=== PATIENT | female | born 1990 | race African-American/Black ===

== ENCOUNTER 2016-05-28 00:15 | Emergency (ER) | payer MEDICAID ==
[~2016-05-28] VITALS: Ht 180.3 cm; Wt 107.4 kg
[~2016-05-28 00:15] MED LIST: AMOXICILLIN500 MG PO; CIPRO500 MG PO; CLARITIN10 M1 PO; FLEXERIL OR; KEFLEX500 M1 PO; LOMOTIL2.5 MG PO; LORTAB 7.57.5 MG PO; MOTRIN800 MG PO; NAPROSYN500 MG PO; NAPROXEN375 MG OR; NO; NO HOME MEDS; NORCO1 TA1 PO; PRENATAL VITAMINS PO; ROBITUSSIN200 MG/10 PO; TESSALON PER100 MG PO; TORADOL OR; ULTRAM50 M1 PO; ZOFRAN ODT8 MG PO; ZOFRAN ODT8 MG SL
[2016-05-28 01:54] LABS: HEMATOCRIT 36.6 % (37.0-47.0); HEMOGLOBIN 11.5 g/dl (12.0-16.0); IMMATURE GRANULOCYTES 0.1 % (0.0-1.0); MEAN CELL VOLUME 84.3 fL CALC (80.0-100.0); MEAN CORPUSCULAR HGB 26.5 pG CALC (26.0-32.0); MEAN CORPUSCULAR HGB CONC 31.4 g/L CALC (32.0-36.0); NEUT# 2.51 thou/uL (2.00-7.15); RED BLOOD COUNT 4.34 mill/uL (4.20-5.60); RED CELL DISTRI WIDTH 13.3 % (11.5-15.5)
[2016-05-28 02:04] LABS: ALBUMIN 3.9 g/dL (3.2-5.0); ALKALINE PHOSPHATASE 105 u/l (38-126); ANION GAP 14 (6-22 (CALC)); BILIRUBIN, TOTAL 0.2 mg/dL (0.0-1.4); BUN 9 mg/dL (7-17); BUN/CREATININE RATIO 12 (12-20 (CALC)); CALCIUM 9.7 mg/dL (8.4-10.2); CARBON DIOXIDE 27 mmol/l (22-30); CHLORIDE 103 mmol/l (95-108); CREATININE 0.8 mg/dL (0.5-1.0); GFR > 60 ML/MIN (>=60 (CALC)); GFR FOR AFR.AMER. > 60 ML/MIN (>=60 (CALC)); GLUCOSE 80 mg/dL (65-105); POTASSIUM 4.3 mmol/l (3.5-5.1); SGOT/AST 19 u/l (14-36); SGPT/ALT 29 u/l (9-52); SODIUM 140 mmol/l (137-146); TOTAL PROTEIN 7.6 g/dL (6.3-8.2)
[2016-05-28 02:05] LABS: INFLUENZA A NONE DETECTED (NONE DETECT); INFLUENZA B NONE DETECTED (NONE DETECT)
[2016-05-28] MEDS ORDERED: AMOXICILLIN500 MG PO (02:05)
[2016-05-28 02:15] VITALS: BP 114/72
== END 2016-05-28 02:15 | disposition home or self-care (01) | DRG 153 ==
LOC: ED 00:15
PROVIDERS: Emergency Medicine
DX: J02.0 Streptococcal pharyngitis (principal); R52 Pain, unspecified; R05 Cough

== ENCOUNTER 2016-07-17 17:13 | Emergency (ER) | payer MEDICAID ==
[~2016-07-17] VITALS: Ht 180.3 cm; Wt 100.0 kg
[2016-07-17 18:07] VITALS: BP 119/80
== END 2016-07-17 18:13 | disposition home or self-care (01) | DRG 103 ==
LOC: ED 17:13
DX: G43.909 Migraine, unspecified, not intractable, without status migrainosus (principal)

== ENCOUNTER 2016-08-04 17:19 | Emergency (ER) | payer MEDICAID ==
[~2016-08-04] VITALS: Ht 180.3 cm; Wt 115.0 kg
[2016-08-04 18:18] LABS: URINE BILIRUBIN - DIPSTICK NEGATIVE (NEGATIVE); URINE BLOOD DIPSTICK LARGE (NEGATIVE); URINE CLARITY SLIGHT CLOUDY; URINE COLOR YELLOW; URINE GLUCOSE - DIPSTICK NEGATIVE (NEGATIVE); URINE KETONE NEGATIVE (NEGATIVE); URINE LEUK ESTERASE TRACE (NEGATIVE); URINE NITRITE - DIPSTICK NEGATIVE (Negative); URINE PROTEIN - DIPSTICK TRACE mg/dL (NEG-TRACE); URINE SPECIFIC GRAVITY >=1.030
[2016-08-04 18:27] LABS: URINE SQUAMOUS EPITHELIAL CELL MODERATE EPI/hpf (0-FEW)
[2016-08-04 18:28] LABS: ALBUMIN 3.7 g/dL (3.2-5.0); ALKALINE PHOSPHATASE 109 u/l (38-126); ANION GAP 14 (6-22 (CALC)); BILIRUBIN, TOTAL 0.3 mg/dL (0.0-1.4); BUN 7 mg/dL (7-17); BUN/CREATININE RATIO 12 (12-20 (CALC)); CALCIUM 8.9 mg/dL (8.4-10.2); CARBON DIOXIDE 23 mmol/l (22-30); CHLORIDE 107 mmol/l (95-108); CREATININE 0.6 mg/dL (0.5-1.0); GFR > 60 ML/MIN (>=60 (CALC)); GFR FOR AFR.AMER. > 60 ML/MIN (>=60 (CALC)); GLUCOSE 86 mg/dL (65-105); POTASSIUM 3.7 mmol/l (3.5-5.1); SGOT/AST 25 u/l (14-36); SGPT/ALT 29 u/l (9-52); SODIUM 140 mmol/l (137-146); TOTAL PROTEIN 6.8 g/dL (6.3-8.2)
[2016-08-04 18:29] LABS: HEMATOCRIT 33.4 % (37.0-47.0); HEMOGLOBIN 11.1 g/dl (12.0-16.0); IMMATURE GRANULOCYTES 0.2 % (0.0-1.0); MEAN CELL VOLUME 81.5 fL CALC (80.0-100.0); MEAN CORPUSCULAR HGB 27.1 pG CALC (26.0-32.0); MEAN CORPUSCULAR HGB CONC 33.2 g/L CALC (32.0-36.0); NEUT# 2.61 thou/uL (2.00-7.15); RED BLOOD COUNT 4.1 mill/uL (4.20-5.60); RED CELL DISTRI WIDTH 14.3 % (11.5-15.5)
[2016-08-04] MEDS ORDERED: CIPROFLOXACN500 MG PO (19:42)
[2016-08-04] MEDS ORDERED: ULTRAM50 M1 PO (19:42)
[2016-08-04 19:54] VITALS: BP 114/79
== END 2016-08-04 19:54 | disposition home or self-care (01) | DRG 392 ==
LOC: ED 17:19
PROVIDERS: Emergency Medicine
DX: R10.31 Right lower quadrant pain (principal); N39.0 Urinary tract infection, site not specified; N83.201 Unspecified ovarian cyst, right side
CPT/HCPCS: Q9967

== ENCOUNTER 2016-10-27 00:05 | Emergency (ER) | payer MEDICAID ==
[~2016-10-27] VITALS: Ht 180.3 cm; Wt 104.2 kg
[~2016-10-27 00:05] MED LIST changes: +CIPROFLOXACN500 MG PO
[2016-10-27 00:51] LABS: INFLUENZA A NONE DETECTED (NONE DETECT); INFLUENZA B NONE DETECTED (NONE DETECT)
[2016-10-27] MEDS ORDERED: AMOXICILLIN500 MG PO (00:57)
[2016-10-27] MEDS ORDERED: ROBITUSSIN AC10 ML PO (00:57)
[2016-10-27 01:02] VITALS: BP 124/74
[2016-10-27] MEDS ORDERED: MONISTAT1 VA (01:07)
== END 2016-10-27 01:02 | disposition home or self-care (01) | DRG 153 ==
LOC: ED 00:05
PROVIDERS: Emergency Medicine
DX: J02.9 Acute pharyngitis, unspecified (principal)

== ENCOUNTER 2017-01-07 16:25 | Emergency (ER) | payer MEDICAID ==
[~2017-01-07] VITALS: Ht 180.3 cm; Wt 109.6 kg
[~2017-01-07 16:25] MED LIST changes: +MONISTAT1 VA; +ROBITUSSIN AC10 ML PO
[2017-01-07] MEDS ORDERED: IMITREX50 MG PO ×2 (17:53→18:01)
[2017-01-07 18:04] VITALS: BP 133/86
== END 2017-01-07 18:04 | disposition home or self-care (01) | DRG 103 ==
LOC: ED 16:25
DX: G43.909 Migraine, unspecified, not intractable, without status migrainosus (principal); H53.143 Visual discomfort, bilateral; H53.8 Other visual disturbances; R11.0 Nausea

== ENCOUNTER 2017-07-21 15:46 | Emergency (ER) | payer SELFPAY ==
[~2017-07-21] VITALS: Ht 180.3 cm; Wt 90.9 kg
[~2017-07-21 15:46] MED LIST changes: +IMITREX50 MG PO
[2017-07-21 16:00] VITALS: BP 158/86
[2017-07-21 16:39] LABS: HEMATOCRIT 36.5 % (37.0-47.0); HEMOGLOBIN 11.6 g/dl (12.0-16.0); IMMATURE GRANULOCYTES 0.2 % (0.0-1.0); MEAN CELL VOLUME 83.1 fL CALC (80.0-100.0); MEAN CORPUSCULAR HGB 26.4 pG CALC (26.0-32.0); MEAN CORPUSCULAR HGB CONC 31.8 g/L CALC (32.0-36.0); NEUT# 3.3 thou/uL (2.00-7.15); RED BLOOD COUNT 4.39 mill/uL (4.20-5.60)
[2017-07-21 16:54] LABS: ALBUMIN 4.1 g/dL (3.2-5.0); ALKALINE PHOSPHATASE 92 u/l (38-126); ANION GAP 14 (6-22 (CALC)); BILIRUBIN, TOTAL 0.4 mg/dL (0.0-1.4); BUN 10 mg/dL (7-17); BUN/CREATININE RATIO 16 (12-20 (CALC)); CARBON DIOXIDE 22 mmol/l (22-30); CHLORIDE 108 mmol/l (95-108); CREATININE 0.7 mg/dL (0.5-1.0); GFR > 60 ML/MIN (>=60 (CALC)); GFR FOR AFR.AMER. > 60 ML/MIN (>=60 (CALC)); LIPASE 64 u/l (23-300); POTASSIUM 3.9 mmol/l (3.5-5.1); SGOT/AST 21 u/l (14-36); SGPT/ALT 35 u/l (9-52); SODIUM 140 mmol/l (137-146)
[2017-07-21] MEDS ORDERED: ULTRAM50 M1 PO (19:48)
== END 2017-07-21 20:23 | disposition home or self-care (01) | DRG 392 ==
LOC: ED 15:46
PROVIDERS: Emergency Medicine
DX: R10.84 Generalized abdominal pain (principal); N83.209 Unspecified ovarian cyst, unspecified side
CPT/HCPCS: Q9967

== ENCOUNTER 2017-09-03 23:33 | Emergency (ER) | payer OTHER ==
[~2017-09-03] VITALS: Ht 180.3 cm; Wt 112.8 kg
[2017-09-04 00:19] LABS: INFLUENZA A NONE DETECTED (NONE DETECT)
[2017-09-04 00:20] LABS: INFLUENZA B NONE DETECTED (NONE DETECT)
[2017-09-04] MEDS ORDERED: AMOXICILLIN500 MG PO (00:26)
[2017-09-04 00:35] VITALS: BP 129/84
== END 2017-09-04 00:35 | disposition home or self-care (01) ==
LOC: ED 23:33
PROVIDERS: Emergency Medicine
DX: J02.0 Streptococcal pharyngitis (principal)

== ENCOUNTER 2017-09-13 22:38 | Emergency (ER) | payer OTHER ==
[~2017-09-13] VITALS: Ht 180.3 cm; Wt 11436.0 kg
[2017-09-13] MEDS ORDERED: AMOX/K CLAV875 M1 PO (23:31)
[2017-09-14 00:01] VITALS: BP 131/79
== END 2017-09-14 00:10 | disposition home or self-care (01) ==
LOC: ED 22:38
DX: J02.0 Streptococcal pharyngitis (principal)

== ENCOUNTER 2017-09-20 11:49 | Emergency (ER) | payer OTHER ==
[~2017-09-20] VITALS: Ht 180.3 cm; Wt 115.0 kg
[~2017-09-20 11:49] MED LIST changes: +AMOX/K CLAV875 M1 PO
[2017-09-20 12:43] LABS: HEMATOCRIT 34.3 % (37.0-47.0); HEMOGLOBIN 11.1 g/dl (12.0-16.0); IMMATURE GRANULOCYTES 0.3 % (0.0-5.0); MEAN CELL VOLUME 82.9 fL CALC (80.0-100.0); MEAN CORPUSCULAR HGB 26.8 pG CALC (26.0-32.0); MEAN CORPUSCULAR HGB CONC 32.4 g/L CALC (32.0-36.0); NEUT# 4.26 thou/uL (2.00-7.15); RED BLOOD COUNT 4.14 mill/uL (4.20-5.60); RED CELL DISTRI WIDTH 13.7 % (11.5-15.5)
[2017-09-20 12:49] LABS: ALBUMIN 3.9 g/dL (3.2-5.0); ALKALINE PHOSPHATASE 97 u/l (38-126); ANION GAP 13 (6-22 (CALC)); BILIRUBIN, TOTAL 0.3 mg/dL (0.0-1.4); BUN 9 mg/dL (7-17); BUN/CREATININE RATIO 16 (12-20 (CALC)); CARBON DIOXIDE 26 mmol/l (22-30); CHLORIDE 107 mmol/l (95-108); CREATININE 0.6 mg/dL (0.5-1.0); GFR > 60 ML/MIN (>=60 (CALC)); GFR FOR AFR.AMER. > 60 ML/MIN (>=60 (CALC)); LIPASE 71 u/l (23-300); POTASSIUM 4.1 mmol/l (3.5-5.1); SGOT/AST 25 u/l (14-36); SGPT/ALT 27 u/l (9-52); SODIUM 142 mmol/l (137-146); TOTAL PROTEIN 7.5 g/dL (6.3-8.2)
[2017-09-20 14:11] VITALS: BP 128/75
[2017-09-20] MEDS ORDERED: MOTRIN200 MG PO (15:19)
== END 2017-09-20 14:20 | disposition home or self-care (01) ==
LOC: ED 11:49
PROVIDERS: Family Medicine
DX: N83.202 Unspecified ovarian cyst, left side (principal); N83.201 Unspecified ovarian cyst, right side; R10.11 Right upper quadrant pain; R10.31 Right lower quadrant pain; R11.0 Nausea
CPT/HCPCS: Q9967

== ENCOUNTER 2017-10-01 23:17 | Emergency (ER) | payer OTHER ==
[~2017-10-01] VITALS: Ht 180.3 cm; Wt 115.0 kg
[~2017-10-01 23:17] MED LIST changes: +MOTRIN200 MG PO
[2017-10-02 00:45] LABS: HEMATOCRIT 34.3 % (37.0-47.0); HEMOGLOBIN 11.2 g/dl (12.0-16.0); IMMATURE GRANULOCYTES 0.2 % (0.0-5.0); MEAN CELL VOLUME 83.1 fL CALC (80.0-100.0); MEAN CORPUSCULAR HGB 27.1 pG CALC (26.0-32.0); MEAN CORPUSCULAR HGB CONC 32.7 g/L CALC (32.0-36.0); NEUT# 2.81 thou/uL (2.00-7.15); RED BLOOD COUNT 4.13 mill/uL (4.20-5.60); RED CELL DISTRI WIDTH 13.6 % (11.5-15.5)
[2017-10-02 01:00] LABS: ALBUMIN 3.8 g/dL (3.2-5.0); ALKALINE PHOSPHATASE 118 u/l (38-126); ANION GAP 13 (6-22 (CALC)); BILIRUBIN, TOTAL 0.2 mg/dL (0.0-1.4); BUN 12 mg/dL (7-17); BUN/CREATININE RATIO 18 (12-20 (CALC)); CARBON DIOXIDE 23 mmol/l (22-30); CHLORIDE 108 mmol/l (95-108); CREATININE 0.7 mg/dL (0.5-1.0); GFR > 60 ML/MIN (>=60 (CALC)); GFR FOR AFR.AMER. > 60 ML/MIN (>=60 (CALC)); POTASSIUM 3.9 mmol/l (3.5-5.1); SGOT/AST 26 u/l (14-36); SGPT/ALT 32 u/l (9-52); SODIUM 141 mmol/l (137-146); TOTAL PROTEIN 7.2 g/dL (6.3-8.2)
[2017-10-02 01:12] LABS: MYOGLOBIN 49 ng/mL (0 - 62)
[2017-10-02 01:42] LABS: URINE BILIRUBIN - DIPSTICK NEGATIVE (NEGATIVE); URINE BLOOD DIPSTICK NEGATIVE (NEGATIVE); URINE COLOR YELLOW; URINE GLUCOSE - DIPSTICK NEGATIVE (NEGATIVE); URINE KETONE TRACE mg/dL (NEGATIVE); URINE NITRITE - DIPSTICK NEGATIVE (Negative); URINE PROTEIN - DIPSTICK NEGATIVE (NEG-TRACE); URINE SPECIFIC GRAVITY >=1.030
[2017-10-02 01:44] LABS: URINE CLARITY SL CLOUDY; URINE LEUK ESTERASE SMALL (NEGATIVE)
[2017-10-02 01:48] LABS: URINE WBC 20-50 WBC/hpf (0-5)
[2017-10-02 01:49] LABS: URINE BACTERIA FEW hpf; URINE SQUAMOUS EPITHELIAL CELL FEW EPI/hpf (0-FEW); URINE TRICHOMONAS FEW hpf
[2017-10-02] MEDS ORDERED: CIPROFLOXACN500 MG PO (02:44)
[2017-10-02 02:55] VITALS: BP 120/70
== END 2017-10-02 03:05 | disposition home or self-care (01) ==
LOC: ED 23:17
PROVIDERS: Emergency Medicine
DX: R60.0 Localized edema (principal); N39.0 Urinary tract infection, site not specified; M79.89 Other specified soft tissue disorders; R94.31 Abnormal electrocardiogram [ECG] [EKG]

== ENCOUNTER 2018-01-21 20:18 | Emergency (ER) | payer OTHER ==
[~2018-01-21] VITALS: Ht 180.3 cm; Wt 127.2 kg
[~2018-01-21 20:18] MED LIST changes: +MAXZIDE-25MG1 COMBO PO; +TRAMADOL HCL50 MG PO
[2018-01-21 21:01] LABS: HEMATOCRIT 34.7 % (37.0-47.0); HEMOGLOBIN 11.2 g/dl (12.0-16.0); IMMATURE GRANULOCYTES 0.3 % (0.0-5.0); MEAN CELL VOLUME 82.8 fL CALC (80.0-100.0); MEAN CORPUSCULAR HGB 26.7 pG CALC (26.0-32.0); MEAN CORPUSCULAR HGB CONC 32.3 g/L CALC (32.0-36.0); NEUT# 5.81 thou/uL (2.00-7.15); RED BLOOD COUNT 4.19 mill/uL (4.20-5.60); RED CELL DISTRI WIDTH 13.8 % (11.5-15.5)
[2018-01-21 21:15] LABS: ALBUMIN 3.7 g/dL (3.2-5.0); ALKALINE PHOSPHATASE 94 u/l (38-126); AMYLASE 91 u/l (30-110); ANION GAP 12 (6-22 (CALC)); BILIRUBIN, TOTAL 0.4 mg/dL (0.0-1.4); BUN 8 mg/dL (7-17); BUN/CREATININE RATIO 15 (12-20 (CALC)); CARBON DIOXIDE 23 mmol/l (22-30); CHLORIDE 107 mmol/l (95-108); CREATININE 0.5 mg/dL (0.5-1.0); GFR > 60 ML/MIN (>=60 (CALC)); GFR FOR AFR.AMER. > 60 ML/MIN (>=60 (CALC)); LIPASE 56 u/l (23-300); POTASSIUM 4.5 mmol/l (3.5-5.1); SGOT/AST 27 u/l (14-36); SODIUM 138 mmol/l (137-146); TOTAL PROTEIN 7.2 g/dL (6.3-8.2)
[2018-01-21] MEDS ORDERED: TRAMADOL HYDROC50 MG PO (23:58)
[2018-01-22 02:30] VITALS: BP 111/51
== END 2018-01-22 02:30 | disposition home or self-care (01) ==
LOC: ED 20:18
PROVIDERS: Emergency Medicine
DX: R10.2 Pelvic and perineal pain (principal); R10.31 Right lower quadrant pain; R11.10 Vomiting, unspecified; Z87.42 Personal history of other diseases of the female genital tract
CPT/HCPCS: Q9967

== ENCOUNTER 2018-05-14 03:19 | Emergency (ER) | payer OTHER ==
[~2018-05-14] VITALS: Ht 180.3 cm; Wt 110.0 kg
[~2018-05-14 03:19] MED LIST changes: +TRAMADOL HYDROC50 MG PO
[2018-05-14 03:56] VITALS: BP 121/61
[2018-05-14] MEDS ORDERED: IBUPROFEN600 MG PO (04:08)
== END 2018-05-14 04:07 | disposition home or self-care (01) ==
LOC: ED 03:19
DX: N93.9 Abnormal uterine and vaginal bleeding, unspecified (principal)

== ENCOUNTER 2018-05-20 00:49 | Emergency (ER) | payer OTHER ==
[~2018-05-20] VITALS: Ht 180.3 cm; Wt 109.4 kg
[~2018-05-20 00:49] MED LIST changes: +IBUPROFEN600 MG PO
[2018-05-20] MEDS ORDERED: TESSALON PER100 MG PO (01:39)
[2018-05-20 02:13] VITALS: BP 132/88
== END 2018-05-20 02:13 | disposition home or self-care (01) ==
LOC: ED 00:49
DX: B34.9 Viral infection, unspecified (principal); J02.9 Acute pharyngitis, unspecified; R09.81 Nasal congestion; R05 Cough; J34.89 Other specified disorders of nose and nasal sinuses

== ENCOUNTER 2018-05-22 03:51 | Emergency (ER) | payer OTHER ==
[~2018-05-22] VITALS: Ht 180.3 cm; Wt 118.0 kg
[2018-05-22 04:23] LABS: HEMATOCRIT 32.9 % (37.0-47.0); HEMOGLOBIN 10.3 g/dl (12.0-16.0); IMMATURE GRANULOCYTES 0.3 % (0.0-5.0); MEAN CELL VOLUME 83.1 fL CALC (80.0-100.0); MEAN CORPUSCULAR HGB CONC 31.3 g/L CALC (32.0-36.0); NEUT# 3.66 thou/uL (2.00-7.15); RED BLOOD COUNT 3.96 mill/uL (4.20-5.60); RED CELL DISTRI WIDTH 14.1 % (11.5-15.5)
[2018-05-22 05:06] VITALS: BP 132/78
== END 2018-05-22 05:21 | disposition home or self-care (01) ==
LOC: ED 03:51
PROVIDERS: Family Medicine
DX: B34.9 Viral infection, unspecified (principal); J02.9 Acute pharyngitis, unspecified; R05 Cough; R09.89 Other specified symptoms and signs involving the circulatory and respiratory systems

== ENCOUNTER 2018-11-19 01:52 | Emergency (ER) | payer OTHER ==
[~2018-11-19] VITALS: Ht 180.3 cm; Wt 100.0 kg
[2018-11-19 02:52] LABS: HEMATOCRIT 33.3 % (37.0-47.0); HEMOGLOBIN 10.5 g/dl (12.0-16.0); IMMATURE GRANULOCYTES 0.1 % (0.0-5.0); MEAN CELL VOLUME 83.9 fL CALC (80.0-100.0); MEAN CORPUSCULAR HGB 26.4 pG CALC (26.0-32.0); MEAN CORPUSCULAR HGB CONC 31.5 g/L CALC (32.0-36.0); NEUT# 3.11 thou/uL (2.00-7.15); RED BLOOD COUNT 3.97 mill/uL (4.20-5.60)
[2018-11-19 03:03] LABS: ALBUMIN 3.9 g/dL (3.2-5.0); ALKALINE PHOSPHATASE 96 u/l (38-126); ANION GAP 9 (6-22 (CALC)); BUN 10 mg/dL (7-17); BUN/CREATININE RATIO 11 (12-20 (CALC)); CARBON DIOXIDE 27 mmol/l (22-30); CHLORIDE 107 mmol/l (95-108); CREATININE 0.9 mg/dL (0.5-1.0); GFR > 60 ML/MIN (>=60 (CALC)); GFR FOR AFR.AMER. > 60 ML/MIN (>=60 (CALC)); POTASSIUM 3.8 mmol/l (3.5-5.1); SGOT/AST 20 u/l (14-36); SODIUM 140 mmol/l (137-146); TOTAL PROTEIN 7.5 g/dL (6.3-8.2)
[2018-11-19 03:04] LABS: BILIRUBIN, TOTAL 0.2 mg/dL (0.0-1.4)
[2018-11-19 03:15] LABS: MYOGLOBIN 24 ng/mL (0 - 62)
[2018-11-19 03:52] LABS: URINE BILIRUBIN - DIPSTICK NEGATIVE (NEGATIVE); URINE BLOOD DIPSTICK MODERATE (NEGATIVE); URINE COLOR YELLOW; URINE GLUCOSE - DIPSTICK 100 mg/dL (NEGATIVE); URINE KETONE NEGATIVE (NEGATIVE); URINE LEUK ESTERASE NEGATIVE (NEGATIVE); URINE NITRITE - DIPSTICK NEGATIVE (Negative); URINE PROTEIN - DIPSTICK NEGATIVE (NEG-TRACE); URINE SPECIFIC GRAVITY 1.025
[2018-11-19 03:56] LABS: BARBITURATES NEGATIVE (NEGATIVE); COCAINE NEGATIVE (NEGATIVE); METHADONE NEGATIVE (NEGATIVE); OXCYCODONE NEGATIVE (NEGATIVE); TETRAHYDROCANNABIONOL NEGATIVE (NEGATIVE); TRICYLIC ANTIDEPRESSANTS NEGATIVE (NEGATIVE)
[2018-11-19 04:01] LABS: URINE SQUAMOUS EPITHELIAL CELL FEW EPI/hpf (0-FEW)
[2018-11-19] MEDS ORDERED: ANTIVERT PO (04:14)
[2018-11-19 04:28] VITALS: BP 124/79
== END 2018-11-19 04:28 | disposition home or self-care (01) ==
LOC: ED 01:52
PROVIDERS: Family Medicine
DX: R42 Dizziness and giddiness (principal); R11.2 Nausea with vomiting, unspecified

== ENCOUNTER 2018-11-26 03:13 | Emergency (ER) | payer OTHER ==
[~2018-11-26] VITALS: Ht 180.3 cm; Wt 100.0 kg
[~2018-11-26 03:13] MED LIST changes: +ANTIVERT PO
[2018-11-26 03:50] LABS: HEMATOCRIT 33.8 % (37.0-47.0); HEMOGLOBIN 10.8 g/dl (12.0-16.0); IMMATURE GRANULOCYTES 0.2 % (0.0-5.0); MEAN CELL VOLUME 83.3 fL CALC (80.0-100.0); MEAN CORPUSCULAR HGB 26.6 pG CALC (26.0-32.0); NEUT# 2.4 thou/uL (2.00-7.15); RED BLOOD COUNT 4.06 mill/uL (4.20-5.60); RED CELL DISTRI WIDTH 13.7 % (11.5-15.5)
[2018-11-26 04:08] LABS: ALBUMIN 3.8 g/dL (3.2-5.0); ALKALINE PHOSPHATASE 115 u/l (38-126); AMYLASE 107 u/l (30-110); ANION GAP 11 (6-22 (CALC)); BILIRUBIN, TOTAL 0.2 mg/dL (0.0-1.4); BUN 11 mg/dL (7-17); BUN/CREATININE RATIO 16 (12-20 (CALC)); CARBON DIOXIDE 25 mmol/l (22-30); CHLORIDE 107 mmol/l (95-108); CREATININE 0.7 mg/dL (0.5-1.0); GFR > 60 ML/MIN (>=60 (CALC)); GFR FOR AFR.AMER. > 60 ML/MIN (>=60 (CALC)); LIPASE 161 u/l (23-300); POTASSIUM 3.8 mmol/l (3.5-5.1); SGOT/AST 20 u/l (14-36); SODIUM 139 mmol/l (137-146); TOTAL PROTEIN 7.3 g/dL (6.3-8.2)
[2018-11-26 04:19] LABS: MYOGLOBIN 22 ng/mL (0 - 62)
[2018-11-26 06:10] VITALS: BP 138/84
== END 2018-11-26 06:10 | disposition home or self-care (01) ==
LOC: ED 03:13
PROVIDERS: Emergency Medicine
DX: R07.9 Chest pain, unspecified (principal)
CPT/HCPCS: Q9967

== ENCOUNTER 2019-04-07 | Emergency (ER) | payer OTHER ==
[2019-04-07 23:28] LABS: HEMATOCRIT 35.3 % (37.0-47.0); HEMOGLOBIN 11.2 g/dl (12.0-16.0); IMMATURE GRANULOCYTES 0.1 % (0.0-5.0); MEAN CELL VOLUME 82.5 fL CALC (80.0-100.0); MEAN CORPUSCULAR HGB 26.2 pG CALC (26.0-32.0); MEAN CORPUSCULAR HGB CONC 31.7 g/L CALC (32.0-36.0); NEUT# 2.83 thou/uL (2.00-7.15); RED BLOOD COUNT 4.28 mill/uL (4.20-5.60); RED CELL DISTRI WIDTH 14.5 % (11.5-15.5)
[2019-04-07 23:43] LABS: ALKALINE PHOSPHATASE 100 u/l (38-126); AMYLASE 169 u/l (30-110); ANION GAP 11 (6-22 (CALC)); BUN 8 mg/dL (7-17); BUN/CREATININE RATIO 13 (12-20 (CALC)); CARBON DIOXIDE 23 mmol/l (22-30); CHLORIDE 107 mmol/l (95-108); CREATININE 0.6 mg/dL (0.5-1.0); GFR > 60 ML/MIN (>=60 (CALC)); GFR FOR AFR.AMER. > 60 ML/MIN (>=60 (CALC)); LIPASE 90 u/l (23-300); POTASSIUM 4.2 mmol/l (3.5-5.1); SODIUM 137 mmol/l (137-146); TOTAL PROTEIN 7.6 g/dL (6.3-8.2)
[2019-04-07 23:47] LABS: BILIRUBIN, TOTAL 0.4 mg/dL (0.0-1.4); SGOT/AST 39 u/l (14-36)
[2019-04-08] MEDS ORDERED: TORADOL PO (01:03)
[2019-04-08] MEDS ORDERED: PHENERGAN25 MG/TAB PO (01:03)
== END 2019-04-08 01:20 | disposition home or self-care (01) ==
PROVIDERS: Family Medicine
DX: K52.9 Noninfective gastroenteritis and colitis, unspecified (principal); N83.201 Unspecified ovarian cyst, right side
CPT/HCPCS: Q9967

== ENCOUNTER 2019-04-27 | Emergency (ER) | payer OTHER ==
[~2019-04-27] MED LIST changes: +PHENERGAN25 MG/TAB PO; +TORADOL PO
[2019-04-28 00:47] LABS: URINE BILIRUBIN - DIPSTICK NEGATIVE (NEGATIVE); URINE BLOOD DIPSTICK NEGATIVE (NEGATIVE); URINE COLOR YELLOW; URINE GLUCOSE - DIPSTICK NEGATIVE (NEGATIVE); URINE KETONE NEGATIVE (NEGATIVE); URINE LEUK ESTERASE NEGATIVE (NEGATIVE); URINE NITRITE - DIPSTICK NEGATIVE (Negative); URINE PROTEIN - DIPSTICK NEGATIVE (NEG-TRACE); URINE SPECIFIC GRAVITY >=1.030
[2019-04-28 01:22] LABS: HEMATOCRIT 32.7 % (37.0-47.0); HEMOGLOBIN 10.4 g/dl (12.0-16.0); IMMATURE GRANULOCYTES 0.1 % (0.0-5.0); MEAN CELL VOLUME 82.6 fL CALC (80.0-100.0); MEAN CORPUSCULAR HGB 26.3 pG CALC (26.0-32.0); MEAN CORPUSCULAR HGB CONC 31.8 g/dL CAL (32.0-36.0); NEUT# 2.86 thou/uL (2.00-7.15); RED BLOOD COUNT 3.96 mill/uL (4.20-5.60)
[2019-04-28 02:00] LABS: ALBUMIN 3.5 g/dL (3.2-5.0); ALKALINE PHOSPHATASE 93 u/l (38-126); ANION GAP 12 (6-22 (CALC)); BUN 10 mg/dL (7-17); BUN/CREATININE RATIO 16 (12-20 (CALC)); CARBON DIOXIDE 23 mmol/l (22-30); CHLORIDE 105 mmol/l (95-108); CREATININE 0.7 mg/dL (0.5-1.0); GFR > 60 ML/MIN (>=60 (CALC)); GFR FOR AFR.AMER. > 60 ML/MIN (>=60 (CALC)); LIPASE 100 u/l (23-300); POTASSIUM 3.9 mmol/l (3.5-5.1); SGOT/AST 20 u/l (14-36); SODIUM 136 mmol/l (137-146); TOTAL PROTEIN 6.8 g/dL (6.3-8.2)
[2019-04-28 02:03] LABS: BILIRUBIN, TOTAL 0.2 mg/dL (0.0-1.4)
[2019-04-28] MEDS ORDERED: DIFLUCAN150 MG PO (02:17)
[2019-04-28] MEDS ORDERED: NAPROXEN DR500 MG PO (02:17)
== END 2019-04-28 02:40 | disposition home or self-care (01) ==
DX: N83.201 Unspecified ovarian cyst, right side (principal); R10.30 Lower abdominal pain, unspecified; R30.0 Dysuria; M54.5 Low back pain

== ENCOUNTER 2019-06-30 20:45 | Emergency (ER) | payer OTHER ==
[~2019-06-30 20:45] MED LIST changes: +DIFLUCAN150 MG PO; +NAPROXEN DR500 MG PO
[2019-06-30 21:41] LABS: HEMATOCRIT 34.7 % (37.0-47.0); IMMATURE GRANULOCYTES 0.2 % (0.0-5.0); MEAN CORPUSCULAR HGB 26.3 pG CALC (26.0-32.0); MEAN CORPUSCULAR HGB CONC 31.7 g/dL CAL (32.0-36.0); NEUT# 4.79 thou/uL (2.00-7.15); RED BLOOD COUNT 4.18 mill/uL (4.20-5.60); RED CELL DISTRI WIDTH 14.1 % (11.5-15.5)
[2019-06-30 21:43] LABS: URINE BILIRUBIN - DIPSTICK NEGATIVE (NEGATIVE); URINE BLOOD DIPSTICK LARGE (NEGATIVE); URINE COLOR YELLOW; URINE GLUCOSE - DIPSTICK NEGATIVE (NEGATIVE); URINE KETONE NEGATIVE (NEGATIVE); URINE LEUK ESTERASE NEGATIVE (NEGATIVE); URINE NITRITE - DIPSTICK NEGATIVE (Negative); URINE PH 5.5 (4.5-8.0); URINE PROTEIN - DIPSTICK 100 mg/dL (NEG-TRACE); URINE SPECIFIC GRAVITY >=1.030
[2019-06-30 22:01] LABS: ALKALINE PHOSPHATASE 100 u/l (38-126); AMYLASE 135 u/l (30-110); ANION GAP 11 (6-22 (CALC)); BILIRUBIN, TOTAL 0.4 mg/dL (0.0-1.4); BUN 10 mg/dL (7-17); BUN/CREATININE RATIO 14 (12-20 (CALC)); CARBON DIOXIDE 26 mmol/l (22-30); CHLORIDE 105 mmol/l (95-108); CREATININE 0.7 mg/dL (0.5-1.0); GFR > 60 ML/MIN (>=60 (CALC)); GFR FOR AFR.AMER. > 60 ML/MIN (>=60 (CALC)); LIPASE 75 u/l (23-300); POTASSIUM 3.6 mmol/l (3.5-5.1); SGOT/AST 30 u/l (14-36); SODIUM 137 mmol/l (137-146); TOTAL PROTEIN 7.7 g/dL (6.3-8.2)
[2019-06-30 22:02] LABS: URINE RBC TNTC RBC/hpf (0-5); URINE SQUAMOUS EPITHELIAL CELL FEW EPI/hpf (0-FEW)
[2019-06-30] MEDS ORDERED: ORTHO-NOVUM 1/31 TAB PO ×2 (22:41)
[2019-06-30] MEDS ORDERED: NAPROXEN500 MG PO ×2 (22:41)
[2019-07-01 00:30] VITALS: BP 133/75
== END 2019-07-01 00:30 | disposition home or self-care (01) ==
LOC: ED 20:45
PROVIDERS: Family Medicine
DX: N83.209 Unspecified ovarian cyst, unspecified side (principal); N94.6 Dysmenorrhea, unspecified

== ENCOUNTER 2019-07-28 00:01 | Emergency (ER) | payer OTHER ==
[~2019-07-28] VITALS: Ht 180.3 cm; Wt 100.0 kg
[~2019-07-28 00:01] MED LIST changes: +NAPROXEN500 MG PO; +ORTHO-NOVUM 1/31 TAB PO
[2019-07-28 01:37] LABS: URINE BILIRUBIN - DIPSTICK NEGATIVE (NEGATIVE); URINE BLOOD DIPSTICK LARGE (NEGATIVE); URINE COLOR YELLOW; URINE GLUCOSE - DIPSTICK NEGATIVE (NEGATIVE); URINE KETONE NEGATIVE (NEGATIVE); URINE LEUK ESTERASE NEGATIVE (NEGATIVE); URINE NITRITE - DIPSTICK NEGATIVE (Negative); URINE PROTEIN - DIPSTICK NEGATIVE (NEG-TRACE)
[2019-07-28 01:38] LABS: URINE RBC TNTC RBC/hpf (0-5); URINE SQUAMOUS EPITHELIAL CELL FEW EPI/hpf (0-FEW)
[2019-07-28 01:39] LABS: HEMATOCRIT 36.2 % (37.0-47.0); HEMOGLOBIN 11.3 g/dl (12.0-16.0); IMMATURE GRANULOCYTES 0.1 % (0.0-5.0); MEAN CELL VOLUME 82.6 fL CALC (80.0-100.0); MEAN CORPUSCULAR HGB 25.8 pG CALC (26.0-32.0); MEAN CORPUSCULAR HGB CONC 31.2 g/dL CAL (32.0-36.0); NEUT# 4.76 thou/uL (2.00-7.15); RED BLOOD COUNT 4.38 mill/uL (4.20-5.60); RED CELL DISTRI WIDTH 14.3 % (11.5-15.5)
[2019-07-28 02:06] LABS: ALKALINE PHOSPHATASE 112 u/l (38-126); AMYLASE 103 u/l (30-110); ANION GAP 11 (6-22 (CALC)); BILIRUBIN, TOTAL 0.4 mg/dL (0.0-1.4); BUN 8 mg/dL (7-17); BUN/CREATININE RATIO 12 (12-20 (CALC)); CARBON DIOXIDE 25 mmol/l (22-30); CHLORIDE 102 mmol/l (95-108); CREATININE 0.7 mg/dL (0.5-1.0); GFR > 60 ML/MIN (>=60 (CALC)); GFR FOR AFR.AMER. > 60 ML/MIN (>=60 (CALC)); LIPASE 81 u/l (23-300); POTASSIUM 3.8 mmol/l (3.5-5.1); SGOT/AST 23 u/l (14-36); SODIUM 135 mmol/l (137-146); TOTAL PROTEIN 7.6 g/dL (6.3-8.2)
[2019-07-28] MEDS ORDERED: TRAMADOL HCL50 MG PO (02:41)
[2019-07-28] MEDS ORDERED: TORADOL PO ×2 (02:41)
[2019-07-28 02:52] VITALS: BP 129/74
== END 2019-07-28 03:02 | disposition home or self-care (01) ==
LOC: ED 00:01
PROVIDERS: Family Medicine
DX: N94.6 Dysmenorrhea, unspecified (principal); N83.209 Unspecified ovarian cyst, unspecified side

== ENCOUNTER 2019-10-21 16:01 | Emergency (ER) | payer OTHER ==
[~2019-10-21] VITALS: Ht 180.3 cm; Wt 90.9 kg
[2019-10-21 16:38] LABS: HEMATOCRIT 35.4 % (37.0-47.0); HEMOGLOBIN 10.9 g/dl (12.0-16.0); IMMATURE GRANULOCYTES 0.1 % (0.0-5.0); MEAN CELL VOLUME 82.3 fL CALC (80.0-100.0); MEAN CORPUSCULAR HGB 25.3 pG CALC (26.0-32.0); MEAN CORPUSCULAR HGB CONC 30.8 g/dL CAL (32.0-36.0); NEUT# 3.99 thou/uL (2.00-7.15); RED BLOOD COUNT 4.3 mill/uL (4.20-5.60); RED CELL DISTRI WIDTH 14.3 % (11.5-15.5)
[2019-10-21 16:52] LABS: ALBUMIN 4.2 g/dL (3.2-5.0); ALKALINE PHOSPHATASE 105 u/l (38-126); ANION GAP 12 (6-22 (CALC)); BUN 11 mg/dL (7-17); BUN/CREATININE RATIO 16 (12-20 (CALC)); CARBON DIOXIDE 22 mmol/l (22-30); CHLORIDE 105 mmol/l (95-108); CREATININE 0.7 mg/dL (0.5-1.0); GFR > 60 ML/MIN (>=60 (CALC)); GFR FOR AFR.AMER. > 60 ML/MIN (>=60 (CALC)); LIPASE 61 u/l (23-300); POTASSIUM 3.6 mmol/l (3.5-5.1); SGOT/AST 22 u/l (14-36); SODIUM 136 mmol/l (137-146); TOTAL PROTEIN 7.8 g/dL (6.3-8.2)
[2019-10-21 16:53] LABS: BILIRUBIN, TOTAL 0.2 mg/dL (0.0-1.4)
[2019-10-21] MEDS ORDERED: TORADOL PO (17:33)
[2019-10-21 17:37] VITALS: BP 138/69
== END 2019-10-21 17:38 | disposition home or self-care (01) ==
LOC: ED 16:01
DX: G89.29 Other chronic pain (principal); R10.31 Right lower quadrant pain; R10.32 Left lower quadrant pain; N83.209 Unspecified ovarian cyst, unspecified side

== ENCOUNTER 2019-11-12 20:34 | Emergency (ER) | payer OTHER ==
[~2019-11-12] VITALS: Ht 180.3 cm; Wt 100.0 kg
[2019-11-13 00:57] LABS: URINE BILIRUBIN - DIPSTICK NEGATIVE (NEGATIVE); URINE BLOOD DIPSTICK NEGATIVE (NEGATIVE); URINE CLARITY CLEAR; URINE COLOR YELLOW; URINE GLUCOSE - DIPSTICK NEGATIVE (NEGATIVE); URINE KETONE NEGATIVE (NEGATIVE); URINE LEUK ESTERASE NEGATIVE (Negative); URINE NITRITE - DIPSTICK NEGATIVE (Negative); URINE PROTEIN - DIPSTICK NEGATIVE (NEG-TRACE); URINE SPECIFIC GRAVITY 1.015; URINE UROBILINOGEN - DIPSTICK 0.2 E.U./dL (0.2)
[2019-11-13] MEDS ORDERED: AMOXICILLIN500 M2 PO (02:50)
[2019-11-13 02:56] VITALS: BP 129/63
== END 2019-11-13 02:56 | disposition home or self-care (01) ==
LOC: ED 20:34
PROVIDERS: Emergency Medicine
DX: J06.9 Acute upper respiratory infection, unspecified (principal); J02.9 Acute pharyngitis, unspecified; Z20.828 Contact with and (suspected) exposure to other viral communicable diseases

== ENCOUNTER 2020-03-08 08:58 | Emergency (ER) | payer OTHER ==
[~2020-03-08] VITALS: Ht 180.3 cm; Wt 105.0 kg
[~2020-03-08 08:58] MED LIST changes: +AMOXICILLIN500 M2 PO
[2020-03-08 09:58] LABS: HEMATOCRIT 33.9 % (37.0-47.0); HEMOGLOBIN 10.8 g/dl (12.0-16.0); IMMATURE GRANULOCYTES 0.2 % (0.0-5.0); MEAN CELL VOLUME 82.9 fL CALC (80.0-100.0); MEAN CORPUSCULAR HGB 26.4 pG CALC (26.0-32.0); MEAN CORPUSCULAR HGB CONC 31.9 g/dL CAL (32.0-36.0); NEUT# 7.17 thou/uL (2.00-7.15); RED BLOOD COUNT 4.09 mill/uL (4.20-5.60); RED CELL DISTRI WIDTH 14.1 % (11.5-15.5)
[2020-03-08] MEDS ORDERED: TRAMADOL HYDROC50 MG PO (10:05)
[2020-03-08] MEDS ORDERED: MOTRIN400 MG/TAB PO (10:05)
[2020-03-08 10:19] LABS: ALBUMIN 3.8 g/dL (3.2-5.0); ALKALINE PHOSPHATASE 82 u/l (38-126); ANION GAP 12 (6-22 (CALC)); BUN 8 mg/dL (7-17); BUN/CREATININE RATIO 12 (12-20 (CALC)); CARBON DIOXIDE 21 mmol/l (22-30); CHLORIDE 103 mmol/l (95-108); CREATININE 0.7 mg/dL (0.5-1.0); GFR > 60 ML/MIN (>=60 (CALC)); GFR FOR AFR.AMER. > 60 ML/MIN (>=60 (CALC)); LIPASE 40 u/l (23-300); POTASSIUM 3.5 mmol/l (3.5-5.1); SGOT/AST 19 u/l (14-36); SODIUM 133 mmol/l (137-146); TOTAL PROTEIN 7.3 g/dL (6.3-8.2)
[2020-03-08 10:21] LABS: BILIRUBIN, TOTAL 0.4 mg/dL (0.0-1.4)
[2020-03-08 14:57] LABS: URINE BILIRUBIN - DIPSTICK NEGATIVE (NEGATIVE); URINE BLOOD DIPSTICK LARGE (NEGATIVE); URINE GLUCOSE - DIPSTICK NEGATIVE (NEGATIVE); URINE KETONE 15 mg/dL (NEGATIVE); URINE LEUK ESTERASE NEGATIVE (NEGATIVE); URINE NITRITE - DIPSTICK NEGATIVE (Negative); URINE PH 6.5 (4.5-8.0); URINE PROTEIN - DIPSTICK TRACE mg/dL (NEG-TRACE)
[2020-03-08 14:59] LABS: URINE COLOR RED; URINE RBC TNTC RBC/hpf (0-5); URINE WBC 0-2 WBC/hpf (0-5)
[2020-03-08 16:52] VITALS: BP 120/58
== END 2020-03-08 16:52 | disposition short-term general hospital (02) ==
LOC: ED 08:58
PROVIDERS: Family Medicine
DX: N83.9 Noninflammatory disorder of ovary, fallopian tube and broad ligament, unspecified (principal); N83.202 Unspecified ovarian cyst, left side; N83.201 Unspecified ovarian cyst, right side
CPT/HCPCS: Q9967

== ENCOUNTER 2020-05-21 23:28 | Emergency (ER) | payer OTHER ==
[~2020-05-21 23:28] MED LIST changes: +MOTRIN400 MG/TAB PO
[2020-05-22 00:18] LABS: ALBUMIN 3.9 g/dL (3.2-5.0); ALKALINE PHOSPHATASE 99 u/l (38-126); ANION GAP 12 (6-22 (CALC)); BILIRUBIN, TOTAL 0.4 mg/dL (0.0-1.4); BUN 8 mg/dL (7-17); BUN/CREATININE RATIO 9 (12-20 (CALC)); CARBON DIOXIDE 23 mmol/l (22-30); CHLORIDE 105 mmol/l (95-108); CREATININE 0.9 mg/dL (0.5-1.0); GFR > 60 ML/MIN (>=60 (CALC)); GFR FOR AFR.AMER. > 60 ML/MIN (>=60 (CALC)); POTASSIUM 4.2 mmol/l (3.5-5.1); SGOT/AST 19 u/l (14-36); SODIUM 135 mmol/l (137-146); TOTAL PROTEIN 7.1 g/dL (6.3-8.2)
[2020-05-22 00:28] LABS: HEMATOCRIT 33.9 % (37.0-47.0); HEMOGLOBIN 10.4 g/dl (12.0-16.0); IMMATURE GRANULOCYTES 0.1 % (0.0-5.0); MEAN CELL VOLUME 82.7 fL CALC (80.0-100.0); MEAN CORPUSCULAR HGB 25.4 pG CALC (26.0-32.0); MEAN CORPUSCULAR HGB CONC 30.7 g/dL CAL (32.0-36.0); NEUT# 3.44 thou/uL (2.00-7.15); RED BLOOD COUNT 4.1 mill/uL (4.20-5.60); RED CELL DISTRI WIDTH 14.7 % (11.5-15.5)
[2020-05-22 00:31] LABS: MYOGLOBIN 31 ng/mL (0 - 62)
[2020-05-22 00:48] LABS: TSH, 3RD GENERATION 3.04 uIU/mL (0.47 - 4.68)
[2020-05-22 01:10] LABS: URINE BILIRUBIN - DIPSTICK NEGATIVE (NEGATIVE); URINE BLOOD DIPSTICK SMALL (NEGATIVE); URINE COLOR YELLOW; URINE GLUCOSE - DIPSTICK NEGATIVE (NEGATIVE); URINE KETONE NEGATIVE (NEGATIVE); URINE LEUK ESTERASE TRACE (NEGATIVE); URINE PROTEIN - DIPSTICK NEGATIVE (NEG-TRACE); URINE SPECIFIC GRAVITY 1.025
[2020-05-22 01:12] LABS: URINE NITRITE - DIPSTICK NEGATIVE (Negative)
[2020-05-22 01:35] LABS: URINE BACTERIA FEW hpf; URINE SQUAMOUS EPITHELIAL CELL FEW EPI/hpf (0-FEW)
[2020-05-22] MEDS ORDERED: ULTRAM50 M1 PO ×2 (01:41→01:42)
[2020-05-22] MEDS ORDERED: KEFLEX500 MG PO (01:41)
[2020-05-22 01:54] VITALS: BP 118/73
== END 2020-05-22 02:11 | disposition home or self-care (01) ==
LOC: ED 23:28
PROVIDERS: Emergency Medicine
DX: R07.89 Other chest pain (principal); N39.0 Urinary tract infection, site not specified; Z20.822 Contact with and (suspected) exposure to COVID-19

== ENCOUNTER 2020-05-30 | Emergency (ER) | payer OTHER ==
[~2020-05-30] MED LIST changes: +KEFLEX500 MG PO
[2020-05-30 01:03] LABS: HEMATOCRIT 32.6 % (37.0-47.0); HEMOGLOBIN 10.1 g/dl (12.0-16.0); IMMATURE GRANULOCYTES 0.3 % (0.0-5.0); MEAN CELL VOLUME 82.5 fL CALC (80.0-100.0); MEAN CORPUSCULAR HGB 25.6 pG CALC (26.0-32.0); NEUT# 2.9 thou/uL (2.00-7.15); RED BLOOD COUNT 3.95 mill/uL (4.20-5.60); RED CELL DISTRI WIDTH 15.2 % (11.5-15.5)
[2020-05-30 01:26] LABS: D-DIMER 0.48 mg/L (0.19-0.60)
[2020-05-30 01:27] LABS: ALBUMIN 3.7 g/dL (3.2-5.0); ALKALINE PHOSPHATASE 90 u/l (38-126); ANION GAP 11 (6-22 (CALC)); BILIRUBIN, TOTAL 0.4 mg/dL (0.0-1.4); BUN 9 mg/dL (7-17); BUN/CREATININE RATIO 14 (12-20 (CALC)); CARBON DIOXIDE 22 mmol/l (22-30); CHLORIDE 106 mmol/l (95-108); CREATININE 0.7 mg/dL (0.5-1.0); GFR > 60 ML/MIN (>=60 (CALC)); GFR FOR AFR.AMER. > 60 ML/MIN (>=60 (CALC)); POTASSIUM 3.5 mmol/l (3.5-5.1); SGOT/AST 22 u/l (14-36); SODIUM 135 mmol/l (137-146)
[2020-05-30 01:33] LABS: ACT PARTIAL THROMBO TIME 23.6 SECONDS (20.0-32.5); PROTHROMBIN TIME 10.2 SECONDS (9.0-12.5)
[2020-05-30 01:57] LABS: TSH, 3RD GENERATION 2.31 uIU/mL (0.47 - 4.68)
== END 2020-05-30 02:27 | disposition home or self-care (01) ==
PROVIDERS: Family Medicine
DX: R60.0 Localized edema (principal)

== ENCOUNTER 2020-06-14 04:54 | Emergency (ER) | payer OTHER ==
[2020-06-14 05:18] LABS: HEMATOCRIT 36.4 % (37.0-47.0); HEMOGLOBIN 11.2 g/dl (12.0-16.0); IMMATURE GRANULOCYTES 0.1 % (0.0-5.0); MEAN CELL VOLUME 83.5 fL CALC (80.0-100.0); MEAN CORPUSCULAR HGB 25.7 pG CALC (26.0-32.0); MEAN CORPUSCULAR HGB CONC 30.8 g/dL CAL (32.0-36.0); NEUT# 2.8 thou/uL (2.00-7.15); RED BLOOD COUNT 4.36 mill/uL (4.20-5.60); RED CELL DISTRI WIDTH 14.6 % (11.5-15.5)
[2020-06-14 05:35] LABS: ALBUMIN 4.3 g/dL (3.2-5.0); ALKALINE PHOSPHATASE 116 u/l (38-126); AMYLASE 106 u/l (30-110); BILIRUBIN, TOTAL 0.5 mg/dL (0.0-1.4); BUN 11 mg/dL (7-17); BUN/CREATININE RATIO 15 (12-20 (CALC)); CHLORIDE 102 mmol/l (95-108); CREATININE 0.7 mg/dL (0.5-1.0); GFR > 60 ML/MIN (>=60 (CALC)); GFR FOR AFR.AMER. > 60 ML/MIN (>=60 (CALC)); LIPASE 103 u/l (23-300); POTASSIUM 3.9 mmol/l (3.5-5.1); SGOT/AST 23 u/l (14-36); SODIUM 137 mmol/l (137-146)
[2020-06-14 05:37] LABS: ACT PARTIAL THROMBO TIME 23.7 SECONDS (20.0-32.5); PROTHROMBIN TIME 10.2 SECONDS (9.0-12.5)
[2020-06-14 05:47] LABS: MYOGLOBIN 34 ng/mL (0 - 62)
[2020-06-14 05:50] LABS: ANION GAP 10 (6-22 (CALC)); CARBON DIOXIDE 29 mmol/l (22-30)
[2020-06-14 05:52] LABS: D-DIMER 0.83 mg/L (0.19-0.60)
[2020-06-14 09:40] LABS: URINE BILIRUBIN - DIPSTICK NEGATIVE (NEGATIVE); URINE BLOOD DIPSTICK NEGATIVE (NEGATIVE); URINE CLARITY CLEAR; URINE COLOR YELLOW; URINE GLUCOSE - DIPSTICK NEGATIVE (NEGATIVE); URINE KETONE NEGATIVE (NEGATIVE); URINE LEUK ESTERASE NEGATIVE (Negative); URINE NITRITE - DIPSTICK NEGATIVE (Negative); URINE PH 7.5 (4.5-8.0); URINE PROTEIN - DIPSTICK NEGATIVE (NEG-TRACE); URINE UROBILINOGEN - DIPSTICK 0.2 E.U./dL (0.2)
[2020-06-14 13:44] VITALS: BP 109/64
== END 2020-06-14 13:46 | disposition short-term general hospital (02) ==
LOC: ED 04:54
PROVIDERS: Emergency Medicine; Family Medicine
DX: K80.20 Calculus of gallbladder without cholecystitis without obstruction (principal); R07.89 Other chest pain
CPT/HCPCS: J2060; Q9967

== ENCOUNTER 2020-10-29 21:18 | Emergency (ER) | payer OTHER ==
[~2020-10-29] VITALS: Ht 180.3 cm; Wt 118.0 kg
[2020-10-29 22:54] LABS: URINE BILIRUBIN - DIPSTICK NEGATIVE (NEGATIVE); URINE BLOOD DIPSTICK LARGE (NEGATIVE); URINE COLOR AMBER; URINE GLUCOSE - DIPSTICK NEGATIVE (NEGATIVE); URINE KETONE NEGATIVE (NEGATIVE); URINE LEUK ESTERASE TRACE (NEGATIVE); URINE NITRITE - DIPSTICK NEGATIVE (Negative); URINE PH 6.5 (4.5-8.0); URINE PROTEIN - DIPSTICK 30 mg/dL (NEG-TRACE); URINE SPECIFIC GRAVITY >=1.030
[2020-10-29 22:58] LABS: URINE RBC >100 RBC/hpf (0-5); URINE SQUAMOUS EPITHELIAL CELL FEW EPI/hpf (0-FEW)
[2020-10-29] MEDS ORDERED: ULTRAM50 MG PO (23:00)
[2020-10-29 23:17] VITALS: BP 129/79
== END 2020-10-29 23:18 | disposition home or self-care (01) ==
LOC: ED 21:18
DX: N94.6 Dysmenorrhea, unspecified (principal)

== ENCOUNTER 2021-01-25 12:39 | Emergency (ER) | payer OTHER ==
[~2021-01-25] VITALS: Ht 180.3 cm; Wt 86.0 kg
[~2021-01-25 12:39] MED LIST changes: +ULTRAM50 MG PO
[2021-01-25 14:22] LABS: HEMATOCRIT 33.9 % (37.0-47.0); HEMOGLOBIN 10.4 g/dl (12.0-16.0); IMMATURE GRANULOCYTES 0.1 % (0.0-5.0); MEAN CELL VOLUME 84.1 fL CALC (80.0-100.0); MEAN CORPUSCULAR HGB 25.8 pG CALC (26.0-32.0); MEAN CORPUSCULAR HGB CONC 30.7 g/dL CAL (32.0-36.0); NEUT# 3.32 thou/uL (2.00-7.15); RED BLOOD COUNT 4.03 mill/uL (4.20-5.60); RED CELL DISTRI WIDTH 14.9 % (11.5-15.5)
[2021-01-25 14:29] LABS: ALBUMIN 3.6 g/dL (3.2-5.0); ALKALINE PHOSPHATASE 103 u/l (38-126); ANION GAP 11 (6-22 (CALC)); BILIRUBIN, TOTAL 0.3 mg/dL (0.0-1.4); BUN 9 mg/dL (7-17); BUN/CREATININE RATIO 14 (12-20 (CALC)); CARBON DIOXIDE 27 mmol/l (22-30); CHLORIDE 105 mmol/l (95-108); CREATININE 0.7 mg/dL (0.5-1.0); GFR > 60 ML/MIN (>=60 (CALC)); GFR FOR AFR.AMER. > 60 ML/MIN (>=60 (CALC)); LIPASE 63 u/l (23-300); POTASSIUM 3.7 mmol/l (3.5-5.1); SGOT/AST 19 u/l (14-36); SODIUM 139 mmol/l (137-146); TOTAL PROTEIN 7.3 g/dL (6.3-8.2)
[2021-01-25 15:05] LABS: URINE BILIRUBIN - DIPSTICK NEGATIVE (NEGATIVE); URINE BLOOD DIPSTICK SMALL (NEGATIVE); URINE COLOR YELLOW; URINE GLUCOSE - DIPSTICK NEGATIVE (NEGATIVE); URINE KETONE NEGATIVE (NEGATIVE); URINE LEUK ESTERASE NEGATIVE (NEGATIVE); URINE PROTEIN - DIPSTICK NEGATIVE (NEG-TRACE); URINE SPECIFIC GRAVITY >=1.030
[2021-01-25 15:10] VITALS: BP 129/60
[2021-01-25 15:18] LABS: URINE NITRITE - DIPSTICK NEGATIVE (Negative)
[2021-01-25 15:19] LABS: URINE SQUAMOUS EPITHELIAL CELL FEW EPI/hpf (0-FEW)
[2021-01-25] MEDS ORDERED: NAPROXEN EC500 MG PO (17:53)
[2021-01-25] MEDS ORDERED: ULTRAM50 MG PO (18:27)
== END 2021-01-25 17:49 | disposition home or self-care (01) ==
LOC: ED 12:39
DX: N83.201 Unspecified ovarian cyst, right side (principal)
CPT/HCPCS: Q9967

== ENCOUNTER 2021-06-12 00:26 | Emergency (ER) | payer OTHER ==
[2021-06-12] VITALS (21 sets, daily range): BP systolic 88–133; BP diastolic 38–88
[~2021-06-12] VITALS: Ht 180.3 cm; Wt 120.0 kg
[~2021-06-12 00:26] MED LIST changes: +NAPROXEN EC500 MG PO
[2021-06-12 01:01] LABS: HEMATOCRIT 32.9 % (37.0-47.0); HEMOGLOBIN 10.3 g/dl (12.0-16.0); MEAN CELL VOLUME 83.1 fL CALC (80.0-100.0); MEAN CORPUSCULAR HGB CONC 31.3 g/dL CAL (32.0-36.0); NEUT# 2.06 thou/uL (2.00-7.15); RED BLOOD COUNT 3.96 mill/uL (4.20-5.60); RED CELL DISTRI WIDTH 14.8 % (11.5-15.5)
[2021-06-12 01:15] LABS: ALBUMIN 3.7 g/dL (3.2-5.0); ALKALINE PHOSPHATASE 103 u/l (38-126); AMYLASE 119 u/l (30-110); ANION GAP 10 (6-22 (CALC)); BUN 12 mg/dL (7-17); BUN/CREATININE RATIO 15 (12-20 (CALC)); CARBON DIOXIDE 24 mmol/l (22-30); CHLORIDE 108 mmol/l (95-108); CREATININE 0.8 mg/dL (0.5-1.0); GFR > 60 ML/MIN (>=60 (CALC)); GFR FOR AFR.AMER. > 60 ML/MIN (>=60 (CALC)); LIPASE 111 u/l (23-300); POTASSIUM 3.7 mmol/l (3.5-5.1); SGOT/AST 21 u/l (14-36); SODIUM 138 mmol/l (137-146); TOTAL PROTEIN 6.9 g/dL (6.3-8.2)
[2021-06-12 01:15] LABS: URINE BILIRUBIN - DIPSTICK NEGATIVE (NEGATIVE); URINE BLOOD DIPSTICK NEGATIVE (NEGATIVE); URINE COLOR YELLOW; URINE GLUCOSE - DIPSTICK NEGATIVE (NEGATIVE); URINE KETONE TRACE mg/dL (NEGATIVE); URINE LEUK ESTERASE NEGATIVE (NEGATIVE); URINE PROTEIN - DIPSTICK NEGATIVE (NEG-TRACE); URINE SPECIFIC GRAVITY >=1.030
[2021-06-12 01:18] LABS: URINE NITRITE - DIPSTICK NEGATIVE (Negative)
[2021-06-12] MEDS ORDERED: TRAMADOL HCL50 MG PO (04:04)
== END 2021-06-12 09:22 | disposition home or self-care (01) ==
LOC: ED 00:26
PROVIDERS: Family Medicine
DX: N83.202 Unspecified ovarian cyst, left side (principal); N83.201 Unspecified ovarian cyst, right side
CPT/HCPCS: Q9967

== ENCOUNTER 2021-07-10 17:58 | Emergency (ER) | payer OTHER ==
[~2021-07-10] VITALS: Ht 180.3 cm; Wt 107.3 kg
[2021-07-10 19:12] LABS: HEMATOCRIT 31.3 % (37.0-47.0); HEMOGLOBIN 9.9 g/dl (12.0-16.0); MEAN CELL VOLUME 83.2 fL CALC (80.0-100.0); MEAN CORPUSCULAR HGB 26.3 pG CALC (26.0-32.0); MEAN CORPUSCULAR HGB CONC 31.6 g/dL CAL (32.0-36.0); NEUT# 2.52 thou/uL (2.00-7.15); RED BLOOD COUNT 3.76 mill/uL (4.20-5.60); RED CELL DISTRI WIDTH 15.3 % (11.5-15.5)
[2021-07-10 19:15] LABS: ALBUMIN 3.6 g/dL (3.2-5.0); ALKALINE PHOSPHATASE 90 u/l (38-126); ANION GAP 10 (6-22 (CALC)); BUN 11 mg/dL (7-17); BUN/CREATININE RATIO 16 (12-20 (CALC)); CARBON DIOXIDE 25 mmol/l (22-30); CHLORIDE 107 mmol/l (95-108); CREATININE 0.7 mg/dL (0.5-1.0); GFR FOR AFR.AMER. > 60 ML/MIN (>=60 (CALC)); GFR OTHER RACES > 60 ML/MIN (>=60 (CALC)); POTASSIUM 3.3 mmol/l (3.5-5.1); SGOT/AST 20 u/l (14-36); SODIUM 138 mmol/l (137-146); TOTAL PROTEIN 6.9 g/dL (6.3-8.2)
[2021-07-10 19:16] LABS: BILIRUBIN, TOTAL 0.2 mg/dL (0.0-1.4)
[2021-07-10 20:19] LABS: URINE BILIRUBIN - DIPSTICK NEGATIVE (NEGATIVE); URINE BLOOD DIPSTICK LARGE (NEGATIVE); URINE COLOR YELLOW; URINE GLUCOSE - DIPSTICK NEGATIVE (NEGATIVE); URINE KETONE NEGATIVE (NEGATIVE); URINE LEUK ESTERASE NEGATIVE (NEGATIVE); URINE PH 6.5 (4.5-8.0); URINE PROTEIN - DIPSTICK TRACE mg/dL (NEG-TRACE); URINE SPECIFIC GRAVITY 1.025
[2021-07-10 20:20] LABS: URINE NITRITE - DIPSTICK NEGATIVE (Negative)
[2021-07-10 20:26] LABS: URINE SQUAMOUS EPITHELIAL CELL MODERATE EPI/hpf (0-FEW)
[2021-07-10 20:27] VITALS: BP 119/64
[2021-07-10 21:41] VITALS: BP 126/81
[2021-07-10 21:45] VITALS: BP 126/81
== END 2021-07-10 21:45 | disposition home or self-care (01) ==
LOC: ED 17:58
PROVIDERS: Family Medicine
DX: G43.909 Migraine, unspecified, not intractable, without status migrainosus (principal); Z20.822 Contact with and (suspected) exposure to COVID-19; I49.3 Ventricular premature depolarization

== ENCOUNTER 2021-08-13 05:21 | Emergency (ER) | payer OTHER ==
[~2021-08-13] VITALS: Ht 180.3 cm; Wt 100.0 kg
[2021-08-13 06:30] LABS: HEMATOCRIT 33.2 % (37.0-47.0); HEMOGLOBIN 10.3 g/dl (12.0-16.0); MEAN CELL VOLUME 82.2 fL CALC (80.0-100.0); MEAN CORPUSCULAR HGB 25.5 pG CALC (26.0-32.0); NEUT# 2.69 thou/uL (2.00-7.15); RED BLOOD COUNT 4.04 mill/uL (4.20-5.60); RED CELL DISTRI WIDTH 14.9 % (11.5-15.5)
[2021-08-13 06:31] LABS: URINE BILIRUBIN - DIPSTICK NEGATIVE (NEGATIVE); URINE BLOOD DIPSTICK LARGE (NEGATIVE); URINE COLOR YELLOW; URINE GLUCOSE - DIPSTICK NEGATIVE (NEGATIVE); URINE KETONE NEGATIVE (NEGATIVE); URINE PROTEIN - DIPSTICK NEGATIVE (NEG-TRACE)
[2021-08-13 06:33] LABS: URINE LEUK ESTERASE SMALL (NEGATIVE); URINE NITRITE - DIPSTICK NEGATIVE (Negative)
[2021-08-13 06:39] LABS: URINE BACTERIA MODERATE hpf; URINE RBC 0-2 RBC/hpf (0-5); URINE SQUAMOUS EPITHELIAL CELL FEW EPI/hpf (0-FEW)
[2021-08-13 06:47] LABS: ALBUMIN 3.8 g/dL (3.2-5.0); ALKALINE PHOSPHATASE 96 u/l (38-126); AMYLASE 115 u/l (30-110); ANION GAP 11 (6-22 (CALC)); BILIRUBIN, TOTAL 0.2 mg/dL (0.0-1.4); BUN 9 mg/dL (7-17); BUN/CREATININE RATIO 13 (12-20 (CALC)); CARBON DIOXIDE 25 mmol/l (22-30); CHLORIDE 106 mmol/l (95-108); CREATININE 0.7 mg/dL (0.5-1.0); GFR FOR AFR.AMER. > 60 ML/MIN (>=60 (CALC)); GFR OTHER RACES > 60 ML/MIN (>=60 (CALC)); LIPASE 70 u/l (23-300); POTASSIUM 3.4 mmol/l (3.5-5.1); SGOT/AST 18 u/l (14-36); SODIUM 139 mmol/l (137-146); TOTAL PROTEIN 7.5 g/dL (6.3-8.2)
[2021-08-13 06:59] LABS: MYOGLOBIN 27 ng/mL (0 - 62)
[2021-08-13 07:46] VITALS: BP 125/84
[2021-08-13] MEDS ORDERED: CEPHALEXIN500 MG PO (07:58)
[2021-08-13] MEDS ORDERED: TRAMADOL HYDROC50 M1 PO (07:58)
[2021-08-13 08:00] VITALS: BP 138/96
[2021-08-13 08:15] VITALS: BP 130/86
== END 2021-08-13 09:00 | disposition home or self-care (01) ==
LOC: ED 05:21
PROVIDERS: Emergency Medicine
DX: R10.2 Pelvic and perineal pain (principal); R07.9 Chest pain, unspecified; N39.0 Urinary tract infection, site not specified; Z20.822 Contact with and (suspected) exposure to COVID-19
CPT/HCPCS: Q9967

== ENCOUNTER 2021-08-28 14:06 | Observation (INO) | payer OTHER ==
[~2021-08-28] VITALS: Ht 180.3 cm; Wt 95.0 kg
[~2021-08-28 14:06] MED LIST changes: +CEPHALEXIN500 MG PO; +TRAMADOL HYDROC50 M1 PO
--- NOTE | 2021-08-28 14:20 | NUR ---
PATIENT ROOMED IN NAD. PROVIDER NOTIFIED OF PATIENT STATUS.
[2021-08-28 14:43] LABS: HEMATOCRIT 37.2 % (37.0-47.0); HEMOGLOBIN 11.5 g/dl (12.0-16.0); IMMATURE GRANULOCYTES 0.4 % (0.0-5.0); MEAN CELL VOLUME 82.9 fL CALC (80.0-100.0); MEAN CORPUSCULAR HGB 25.6 pG CALC (26.0-32.0); MEAN CORPUSCULAR HGB CONC 30.9 g/dL CAL (32.0-36.0); NEUT# 1.93 thou/uL (2.00-7.15); RED BLOOD COUNT 4.49 mill/uL (4.20-5.60); RED CELL DISTRI WIDTH 15.3 % (11.5-15.5)
[2021-08-28 15:00] LABS: ALBUMIN 3.6 g/dL (3.2-5.0); ALKALINE PHOSPHATASE 93 u/l (38-126); BILIRUBIN, TOTAL 0.2 mg/dL (0.0-1.4); BUN 8 mg/dL (7-17); BUN/CREATININE RATIO 13 (12-20 (CALC)); CARBON DIOXIDE 24 mmol/l (22-30); CHLORIDE 107 mmol/l (95-108); CREATININE 0.7 mg/dL (0.5-1.0); GFR FOR AFR.AMER. > 60 ML/MIN (>=60 (CALC)); GFR OTHER RACES > 60 ML/MIN (>=60 (CALC)); INTERNATIONAL NORMALIZED RATIO 0.9 RATIO (0.7-1.3); LIPASE 69 u/l (23-300); PROTHROMBIN TIME 9.9 SECONDS (9.0-12.5); SGOT/AST 29 u/l (14-36); SODIUM 136 mmol/l (137-146); TOTAL PROTEIN 7.3 g/dL (6.3-8.2)
[2021-08-28 15:01] LABS: ANION GAP 9 (6-22 (CALC))
--- NOTE | 2021-08-28 15:08 | NUR ---
PATIENT UP TO RESTROOM. URINE COLLECTED. XRAY SAID THEY WILL RETURN AFTER HCG/URINE TEST RESULTS.
[2021-08-28 15:11] LABS: MYOGLOBIN 23 ng/mL (0 - 62)
[2021-08-28 15:11] LABS: URINE BILIRUBIN - DIPSTICK NEGATIVE (NEGATIVE); URINE BLOOD DIPSTICK NEGATIVE (NEGATIVE); URINE COLOR YELLOW; URINE GLUCOSE - DIPSTICK NEGATIVE (NEGATIVE); URINE KETONE NEGATIVE (NEGATIVE); URINE PROTEIN - DIPSTICK NEGATIVE (NEG-TRACE); URINE SPECIFIC GRAVITY >=1.030; URINE UROBILINOGEN - DIPSTICK 0.2 E.U./dL (0.2)
[2021-08-28 15:17] LABS: URINE LEUK ESTERASE SMALL (NEGATIVE); URINE NITRITE - DIPSTICK NEGATIVE (Negative)
[2021-08-28 15:22] LABS: URINE SQUAMOUS EPITHELIAL CELL MODERATE EPI/hpf (0-FEW)
--- NOTE | 2021-08-28 16:10 | NUR ---
Reassessment of patient completed. No distress noted.
--- NOTE | 2021-08-28 17:00 | NUR ---
Reassessment of patient completed. No distress noted. Patient reports her chest pain level has increased again to 8/10. 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
--- NOTE | 2021-08-28 18:00 | NUR ---
Reassessment of patient completed. No distress noted.
--- NOTE | 2021-08-28 18:33 | NUR ---
Reassessment of patient completed. PATIENT REPORTS HAVE CHEST PAIN No distress noted. FOOD AND DRINK PROVIDED TO PATIENT. VITALS STABLE.
--- NOTE | 2021-08-28 19:21 | NUR ---
REPORT CALLED TO FLOOR
[2021-08-28 19:33] VITALS: BP 128/82
[2021-08-29 00:45] VITALS: BP 110/74
--- NOTE | 2021-08-29 00:48 | NUR ---
PT ARRIVED TO FLOOR BY WHEELCHAIR, NO DISTRESS NOTED, ADMISSION COMPLETED ALONG WITH ASSESSMENT, PT STATES SHE IS HAVING PAIN IN HER CHEST WHEN SHE BREATHES, O2 SAT 97% RA, GAVE PT TYLENOL AND SONATA TO HELP HER SLEEP. WILL CONTINUE TO MONITOR
[2021-08-29 04:07] VITALS: BP 121/82
--- NOTE | 2021-08-29 05:02 | NUR ---
PT IN BED ASLEEP, NO DISTRESS NOTED, BED IN LOW POSITION, CALL LIGHT IN REACH
[2021-08-29 05:49] LABS: CHOLESTEROL HDL RATIO 3.3 (<4.4 (CALC)); MAGNESIUM 2.1 mg/dL (1.6-2.3)
[2021-08-29 07:00] VITALS: BP 142/98
--- NOTE | 2021-08-29 07:00 | NUR ---
REPORT RECIEVED FROM GENA HIGGINS
[2021-08-29 07:01] VITALS: BP 140/103
[2021-08-29 07:34] VITALS: BP 126/64
--- NOTE | 2021-08-29 07:43 | NUR ---
PT IN ROOM COMPLIANING OF CHEST PAIN. VITALS OBTAINED BP: 126/64 HR: 84 SPO2: 96 RR:19 PT STATES FEELING "SQUEEEZING FEELING" MD NOTIFIED. EKG ORDERED.
--- NOTE | 2021-08-29 08:03 | NUR ---
RT AT BEDSIDE
--- NOTE | 2021-08-29 08:15 | NUR ---
PT EATING BREAKFAST. ASSESSMENT PERFORMED. PT BREATHING EVEN AND UNLABORED. LUNG SOUNDS CLEAR UPPER/LOWER LOBES. HEART SOUNDS REGULAR. STATES STILL FEELING CHEST PAIN. MD NOTIFIED. TELE MONITOR IN PLACE, CONTINOUS MONITORING PER ED. ABLE TO MOVE ALL EXTREMEITES. FALL/SAFTEY PRECAUTION IN PLACE. CALL LIGHT WITHIN REACH
[2021-08-29] MEDS ORDERED: TRAMADOL HCL50 MG PO (12:05)
--- NOTE | 2021-08-29 12:44 | NUR ---
PT RESTING IN BED COMPLAINING OF UPPER EXTREMITY PAIN. MEDICATED SEE EMAR. STATES NO CHEST PAIN. FALL/SAFTEY PRECAUTION IN PLACE. CALL LIGHT WITHIN REACH
[2021-08-29 13:14] VITALS: BP 108/68
--- NOTE | 2021-08-29 16:10 | NUR ---
PT RESTING IN BED AWAITING FOR FAMILY MEMBERS ARRIVE FOR DC. BREATHING EVEN AND UNLABORED. TELE MONITOR IN PLACE, CONTINOUS MONITORIONG PER ED. STATES NO NEEDS AT THIS TIME. FALL/SAFTEY PRECAUTION IN PLACE. CALL LIGHT WITHIN REACH
--- NOTE | 2021-08-29 18:56 | NUR ---
Discharge instructions given. Patient verbalizes understanding of same. Discharged in stable condition via Wheelchair to Home with staff. All belongings sent with pt.
== END 2021-08-29 18:55 | disposition home or self-care (01) ==
LOC: ED 14:06 → ED-I 17:30 → ED 18:04 → MS2 18:05
PROVIDERS: Nurse Practitioner; ADMIT Internal Medicine; ATTEND Internal Medicine
DX: R07.89 Other chest pain (principal); I49.3 Ventricular premature depolarization; U07.1 COVID-19
CPT/HCPCS: G0378; J1650; Q9967

== ENCOUNTER 2021-10-26 17:21 | Emergency (ER) | payer OTHER ==
[~2021-10-26] VITALS: Ht 180.3 cm; Wt 115.0 kg
[2021-10-26 17:49] LABS: HEMATOCRIT 32.5 % (37.0-47.0); HEMOGLOBIN 10.6 g/dl (12.0-16.0); MEAN CELL VOLUME 79.5 fL CALC (80.0-100.0); MEAN CORPUSCULAR HGB 25.9 pG CALC (26.0-32.0); MEAN CORPUSCULAR HGB CONC 32.6 g/dL CAL (32.0-36.0); NEUT# 2.59 thou/uL (2.00-7.15); RED BLOOD COUNT 4.09 mill/uL (4.20-5.60); RED CELL DISTRI WIDTH 14.4 % (11.5-15.5)
[2021-10-26 17:52] LABS: ALBUMIN 4.1 g/dL (3.2-5.0); ALKALINE PHOSPHATASE 88 u/l (38-126); ANION GAP 15 (6-22 (CALC)); BUN 7 mg/dL (7-17); BUN/CREATININE RATIO 10 (12-20 (CALC)); CARBON DIOXIDE 20 mmol/l (22-30); CHLORIDE 105 mmol/l (95-108); CREATININE 0.7 mg/dL (0.5-1.0); GFR FOR AFR.AMER. > 60 ML/MIN (>=60 (CALC)); GFR OTHER RACES > 60 ML/MIN (>=60 (CALC)); LIPASE 69 u/l (23-300); POTASSIUM 3.6 mmol/l (3.5-5.1); SGOT/AST 31 u/l (14-36); SODIUM 136 mmol/l (137-146); TOTAL PROTEIN 7.5 g/dL (6.3-8.2)
[2021-10-26 17:53] LABS: BILIRUBIN, TOTAL 0.3 mg/dL (0.0-1.4)
[2021-10-26 19:12] LABS: URINE BILIRUBIN - DIPSTICK NEGATIVE (NEGATIVE); URINE BLOOD DIPSTICK NEGATIVE (NEGATIVE); URINE COLOR YELLOW; URINE GLUCOSE - DIPSTICK NEGATIVE (NEGATIVE); URINE KETONE NEGATIVE (NEGATIVE); URINE PROTEIN - DIPSTICK NEGATIVE (NEG-TRACE); URINE UROBILINOGEN - DIPSTICK 0.2 E.U./dL (0.2)
[2021-10-26 19:13] LABS: URINE LEUK ESTERASE MODERATE (NEGATIVE); URINE NITRITE - DIPSTICK NEGATIVE (Negative)
[2021-10-26 19:21] LABS: URINE SQUAMOUS EPITHELIAL CELL MANY EPI/hpf (0-FEW)
[2021-10-26] MEDS ORDERED: ULTRAM50 M1 PO (22:11)
[2021-10-26 22:15] VITALS: BP 143/99
== END 2021-10-26 22:42 | disposition home or self-care (01) ==
LOC: ED 17:21
PROVIDERS: Family Medicine
DX: R07.89 Other chest pain (principal); N83.201 Unspecified ovarian cyst, right side
CPT/HCPCS: Q9967

== ENCOUNTER 2021-12-02 22:18 | Emergency (ER) | payer OTHER ==
[~2021-12-02] VITALS: Ht 180.3 cm; Wt 118.1 kg
[2021-12-02 22:28] VITALS: BP 149/112
[2021-12-02 22:31] VITALS: BP 142/77
[2021-12-02 23:40] LABS: HEMATOCRIT 32.3 % (37.0-47.0); HEMOGLOBIN 10.1 g/dl (12.0-16.0); IMMATURE GRANULOCYTES 0.1 % (0.0-5.0); MEAN CELL VOLUME 83.5 fL CALC (80.0-100.0); MEAN CORPUSCULAR HGB 26.1 pG CALC (26.0-32.0); MEAN CORPUSCULAR HGB CONC 31.3 g/dL CAL (32.0-36.0); NEUT# 3.67 thou/uL (2.00-7.15); RED BLOOD COUNT 3.87 mill/uL (4.20-5.60); RED CELL DISTRI WIDTH 14.4 % (11.5-15.5)
[2021-12-02 23:42] LABS: URINE BILIRUBIN - DIPSTICK NEGATIVE (NEGATIVE); URINE BLOOD DIPSTICK LARGE (NEGATIVE); URINE COLOR YELLOW; URINE GLUCOSE - DIPSTICK NEGATIVE (NEGATIVE); URINE KETONE TRACE mg/dL (NEGATIVE); URINE LEUK ESTERASE NEGATIVE (NEGATIVE); URINE PH 6.5 (4.5-8.0); URINE PROTEIN - DIPSTICK NEGATIVE (NEG-TRACE)
[2021-12-02 23:48] LABS: URINE NITRITE - DIPSTICK NEGATIVE (Negative)
[2021-12-02 23:49] LABS: URINE SQUAMOUS EPITHELIAL CELL FEW EPI/hpf (0-FEW); URINE WBC 0-2 WBC/hpf (0-5)
[2021-12-02 23:50] LABS: URINE BACTERIA MODERATE hpf
[2021-12-02 23:52] LABS: ALBUMIN 4.3 g/dL (3.2-5.0); ALKALINE PHOSPHATASE 115 u/l (38-126); BUN 12 mg/dL (7-17); BUN/CREATININE RATIO 11 (12-20 (CALC)); CHLORIDE 103 mmol/l (95-108); GFR FOR AFR.AMER. > 60 ML/MIN (>=60 (CALC)); GFR OTHER RACES > 60 ML/MIN (>=60 (CALC)); POTASSIUM 3.7 mmol/l (3.5-5.1); SGOT/AST 24 u/l (14-36); SODIUM 138 mmol/l (137-146)
[2021-12-03 00:01] LABS: ANION GAP 12 (6-22 (CALC)); CARBON DIOXIDE 27 mmol/l (22-30)
[2021-12-03] MEDS ORDERED: BACTRIM DS1 TAB PO (00:29)
[2021-12-03] MEDS ORDERED: TYLENOL # 31 TA1 PO (00:29)
[2021-12-03 00:38] VITALS: BP 142/77
== END 2021-12-03 00:55 | disposition home or self-care (01) ==
LOC: ED 22:18
PROVIDERS: Family Medicine
DX: N83.201 Unspecified ovarian cyst, right side (principal); N94.6 Dysmenorrhea, unspecified; N39.0 Urinary tract infection, site not specified

== ENCOUNTER 2022-02-06 00:41 | Emergency (ER) | payer OTHER ==
[2022-02-06] VITALS (8 sets, daily range): BP systolic 124–148; BP diastolic 76–99
[~2022-02-06] VITALS: Ht 180.3 cm; Wt 118.0 kg
[~2022-02-06 00:41] MED LIST changes: +BACTRIM DS1 TAB PO; +TYLENOL # 31 TA1 PO
[2022-02-06 01:59] LABS: URINE BILIRUBIN - DIPSTICK NEGATIVE (NEGATIVE); URINE BLOOD DIPSTICK NEGATIVE (NEGATIVE); URINE COLOR YELLOW; URINE GLUCOSE - DIPSTICK NEGATIVE (NEGATIVE); URINE KETONE TRACE mg/dL (NEGATIVE); URINE LEUK ESTERASE NEGATIVE (NEGATIVE); URINE PROTEIN - DIPSTICK NEGATIVE (NEG-TRACE); URINE SPECIFIC GRAVITY >=1.030
[2022-02-06 02:01] LABS: BASO% 0.6 % (0-3); EOS% 3.6 % (0-8); HEMATOCRIT 33.5 % (37.0-47.0); HEMOGLOBIN 10.4 g/dl (12.0-16.0); IMMATURE GRANULOCYTES 0.1 % (0.0-5.0); LYMPH% 43.5 % (15-41); MEAN CELL VOLUME 81.1 fL CALC (80.0-100.0); MEAN CORPUSCULAR HGB 25.2 pG CALC (26.0-32.0); MONO% 9.1 % (2-13); NEUT% 43.1 % (42-76); RED BLOOD COUNT 4.13 mill/uL (4.20-5.60); RED CELL DISTRI WIDTH 15.1 % (11.5-15.5)
[2022-02-06 02:16] LABS: URINE BACTERIA FEW hpf; URINE CALCIUM OXALATE CRYSTALS FEW lpf; URINE NITRITE - DIPSTICK NEGATIVE (Negative); URINE SQUAMOUS EPITHELIAL CELL FEW EPI/hpf (0-FEW)
[2022-02-06 02:31] LABS: ALBUMIN 3.8 g/dL (3.2-5.0); ALKALINE PHOSPHATASE 110 u/l (38-126); ANION GAP 8 (6-22 (CALC)); BUN 8 mg/dL (7-17); BUN/CREATININE RATIO 12 (12-20 (CALC)); CARBON DIOXIDE 27 mmol/l (22-30); CHLORIDE 106 mmol/l (95-108); CREATININE 0.7 mg/dL (0.5-1.0); GFR FOR AFR.AMER. > 60 ML/MIN (>=60 (CALC)); GFR OTHER RACES > 60 ML/MIN (>=60 (CALC)); LIPASE 143 u/l (23-300); POTASSIUM 3.9 mmol/l (3.5-5.1); SGOT/AST 22 u/l (14-36); SODIUM 138 mmol/l (137-146); TOTAL PROTEIN 7.1 g/dL (6.3-8.2)
== END 2022-02-06 04:13 | disposition home or self-care (01) ==
LOC: ED 00:41
PROVIDERS: Family Medicine
DX: R10.9 Unspecified abdominal pain (principal); G89.29 Other chronic pain; R45.1 Restlessness and agitation; T42.6X5A Adverse effect of other antiepileptic and sedative-hypnotic drugs, initial encounter

== ENCOUNTER 2022-02-09 00:15 | Emergency (ER) | payer OTHER ==
[~2022-02-09] VITALS: Ht 180.3 cm; Wt 118.2 kg
[2022-02-09] MEDS ORDERED: ASPIRIN 81 LOW81 MG PO (00:42)
[2022-02-09 01:13] LABS: BASO% 0.6 % (0-3); EOS% 3.7 % (0-8); HEMATOCRIT 31.8 % (37.0-47.0); HEMOGLOBIN 10.3 g/dl (12.0-16.0); IMMATURE GRANULOCYTES 0.1 % (0.0-5.0); LYMPH% 38.8 % (15-41); MEAN CELL VOLUME 80.5 fL CALC (80.0-100.0); MEAN CORPUSCULAR HGB 26.1 pG CALC (26.0-32.0); MEAN CORPUSCULAR HGB CONC 32.4 g/dL CAL (32.0-36.0); MONO% 9.3 % (2-13); NEUT# 3.37 thou/uL (2.00-7.15); NEUT% 47.5 % (42-76); RED BLOOD COUNT 3.95 mill/uL (4.20-5.60); RED CELL DISTRI WIDTH 15.6 % (11.5-15.5)
[2022-02-09 01:26] LABS: ALKALINE PHOSPHATASE 90 u/l (38-126); ANION GAP 9 (6-22 (CALC)); BUN 8 mg/dL (7-17); BUN/CREATININE RATIO 12 (12-20 (CALC)); CARBON DIOXIDE 26 mmol/l (22-30); CHLORIDE 108 mmol/l (95-108); CREATININE 0.7 mg/dL (0.5-1.0); GFR FOR AFR.AMER. > 60 ML/MIN (>=60 (CALC)); GFR OTHER RACES > 60 ML/MIN (>=60 (CALC)); LIPASE 87 u/l (23-300); POTASSIUM 3.5 mmol/l (3.5-5.1); SGOT/AST 24 u/l (14-36); SODIUM 139 mmol/l (137-146); TOTAL PROTEIN 7.5 g/dL (6.3-8.2)
[2022-02-09] MEDS ORDERED: TORADOL PO (02:17)
[2022-02-09 02:22] VITALS: BP 131/85
== END 2022-02-09 03:25 | disposition home or self-care (01) ==
LOC: ED 00:15
PROVIDERS: Family Medicine
DX: R07.89 Other chest pain (principal); M54.12 Radiculopathy, cervical region

== ENCOUNTER 2022-02-25 08:40 | Emergency (ER) | payer OTHER ==
[~2022-02-25] VITALS: Ht 180.3 cm; Wt 99.7 kg
[~2022-02-25 08:40] MED LIST changes: +ASPIRIN 81 LOW81 MG PO
[2022-02-25 09:26] VITALS: BP 128/88
[2022-02-25 09:31] VITALS: BP 136/89
[2022-02-25 09:46] VITALS: BP 128/89
[2022-02-25 09:49] LABS: BASO% 0.5 % (0-3); EOS% 3.7 % (0-8); HEMATOCRIT 30.7 % (37.0-47.0); HEMOGLOBIN 9.9 g/dl (12.0-16.0); IMMATURE GRANULOCYTES 0.2 % (0.0-5.0); MEAN CELL VOLUME 81.2 fL CALC (80.0-100.0); MEAN CORPUSCULAR HGB 26.2 pG CALC (26.0-32.0); MEAN CORPUSCULAR HGB CONC 32.2 g/dL CAL (32.0-36.0); MONO% 8.6 % (2-13); NEUT# 3.06 thou/uL (2.00-7.15); RED BLOOD COUNT 3.78 mill/uL (4.20-5.60); RED CELL DISTRI WIDTH 15.2 % (11.5-15.5)
[2022-02-25 09:50] LABS: URINE BILIRUBIN - DIPSTICK NEGATIVE (NEGATIVE); URINE BLOOD DIPSTICK NEGATIVE (NEGATIVE); URINE CLARITY CLEAR; URINE COLOR YELLOW; URINE GLUCOSE - DIPSTICK NEGATIVE (NEGATIVE); URINE KETONE NEGATIVE (NEGATIVE); URINE LEUK ESTERASE NEGATIVE (Negative); URINE NITRITE - DIPSTICK NEGATIVE (Negative); URINE PROTEIN - DIPSTICK NEGATIVE (NEG-TRACE); URINE UROBILINOGEN - DIPSTICK 0.2 E.U./dL (0.2)
[2022-02-25 10:04] LABS: ALKALINE PHOSPHATASE 93 u/l (38-126); ANION GAP 6 (6-22 (CALC)); BUN 8 mg/dL (7-17); BUN/CREATININE RATIO 12 (12-20 (CALC)); CARBON DIOXIDE 30 mmol/l (22-30); CHLORIDE 106 mmol/l (95-108); CREATININE 0.6 mg/dL (0.5-1.0); GFR FOR AFR.AMER. > 60 ML/MIN (>=60 (CALC)); GFR OTHER RACES > 60 ML/MIN (>=60 (CALC)); LIPASE 65 u/l (23-300); POTASSIUM 3.7 mmol/l (3.5-5.1); SGOT/AST 22 u/l (14-36); SODIUM 138 mmol/l (137-146); TOTAL PROTEIN 7.6 g/dL (6.3-8.2)
[2022-02-25] MEDS ORDERED: ZOFRAN4 MG/TAB PO (13:01)
[2022-02-25] MEDS ORDERED: TRAMADOL HYDROC50 M1 PO (13:01)
[2022-02-25 13:27] VITALS: BP 128/89
== END 2022-02-25 13:00 | disposition home or self-care (01) ==
LOC: ED 08:40
PROVIDERS: Internal Medicine
DX: N70.92 Oophoritis, unspecified (principal); N83.201 Unspecified ovarian cyst, right side

== ENCOUNTER 2022-03-18 03:52 | Emergency (ER) | payer OTHER ==
[~2022-03-18] VITALS: Ht 180.3 cm; Wt 108.0 kg
[~2022-03-18 03:52] MED LIST changes: +ZOFRAN4 MG/TAB PO
[2022-03-18 04:12] VITALS: BP 148/79
[2022-03-18 04:16] VITALS: BP 138/80
[2022-03-18 05:16] VITALS: BP 131/88
[2022-03-18 05:23] LABS: BASO% 0.3 % (0-3); EOS% 4.9 % (0-8); HEMATOCRIT 35.2 % (37.0-47.0); HEMOGLOBIN 10.9 g/dl (12.0-16.0); IMMATURE GRANULOCYTES 0.2 % (0.0-5.0); LYMPH% 32.8 % (15-41); MEAN CELL VOLUME 80.2 fL CALC (80.0-100.0); MEAN CORPUSCULAR HGB 24.8 pG CALC (26.0-32.0); MONO% 10.2 % (2-13); NEUT# 3.39 thou/uL (2.00-7.15); NEUT% 51.6 % (42-76); RED BLOOD COUNT 4.39 mill/uL (4.20-5.60); RED CELL DISTRI WIDTH 15.8 % (11.5-15.5)
[2022-03-18 05:30] VITALS: BP 125/85
[2022-03-18 05:38] LABS: ALBUMIN 4.1 g/dL (3.2-5.0); ALKALINE PHOSPHATASE 109 u/l (38-126); AMYLASE 118 u/l (30-110); ANION GAP 10 (6-22 (CALC)); BUN 10 mg/dL (7-17); BUN/CREATININE RATIO 13 (12-20 (CALC)); CARBON DIOXIDE 24 mmol/l (22-30); CHLORIDE 108 mmol/l (95-108); CREATININE 0.7 mg/dL (0.5-1.0); GFR FOR AFR.AMER. > 60 ML/MIN (>=60 (CALC)); GFR OTHER RACES > 60 ML/MIN (>=60 (CALC)); LIPASE 88 u/l (23-300); POTASSIUM 4.2 mmol/l (3.5-5.1); SGOT/AST 26 u/l (14-36); SODIUM 138 mmol/l (137-146); TOTAL PROTEIN 7.5 g/dL (6.3-8.2)
[2022-03-18 05:39] LABS: BILIRUBIN, TOTAL 0.1 mg/dL (0.02-1.3)
[2022-03-18 05:45] VITALS: BP 113/75
[2022-03-18 06:12] LABS: URINE COLOR RED
[2022-03-18 06:13] LABS: URINE BILIRUBIN - DIPSTICK NEGATIVE (NEGATIVE); URINE GLUCOSE - DIPSTICK NEGATIVE (NEGATIVE); URINE KETONE Negative (NEGATIVE); URINE NITRITE - DIPSTICK NEGATIVE (Negative); URINE PH 7.5 (4.5-8.0); URINE PROTEIN - DIPSTICK 30 mg/dL (NEG-TRACE); URINE SPECIFIC GRAVITY 1.025
[2022-03-18 06:14] LABS: URINE BLOOD DIPSTICK LARGE (NEGATIVE); URINE EPITHELIAL CELLS FEW EPI/hpf (0-FEW); URINE LEUK ESTERASE NEGATIVE (NEGATIVE); URINE RBC >100 RBC/hpf (0-5)
[2022-03-18 06:15] LABS: URINE BACTERIA MODERATE hpf
[2022-03-18] MEDS ORDERED: ULTRAM50 MG PO (06:50)
[2022-03-18] MEDS ORDERED: KEFLEX500 MG PO (06:54)
[2022-03-18 07:15] VITALS: BP 113/75
== END 2022-03-18 07:00 | disposition home or self-care (01) ==
LOC: ED 03:52
PROVIDERS: Emergency Medicine
DX: N83.201 Unspecified ovarian cyst, right side (principal); N39.0 Urinary tract infection, site not specified; Z20.822 Contact with and (suspected) exposure to COVID-19
CPT/HCPCS: Q9967

== ENCOUNTER 2022-05-11 03:32 | Emergency (ER) | payer OTHER ==
[~2022-05-11] VITALS: Ht 180.3 cm; Wt 126.0 kg
[2022-05-11] VITALS (20 sets, daily range): BP systolic 101–154; BP diastolic 53–106
[2022-05-11 04:11] LABS: BASO% 0.4 % (0-3); EOS% 3.4 % (0-8); HEMATOCRIT 31.9 % (37.0-47.0); HEMOGLOBIN 9.9 g/dl (12.0-16.0); IMMATURE GRANULOCYTES 0.4 % (0.0-5.0); LYMPH% 47.5 % (15-41); MEAN CELL VOLUME 80.4 fL CALC (80.0-100.0); MEAN CORPUSCULAR HGB 24.9 pG CALC (26.0-32.0); MONO% 8.5 % (2-13); NEUT# 2.68 thou/uL (2.00-7.15); NEUT% 39.8 % (42-76); RED BLOOD COUNT 3.97 mill/uL (4.20-5.60); RED CELL DISTRI WIDTH 16.1 % (11.5-15.5)
[2022-05-11 04:29] LABS: ALBUMIN 3.7 g/dL (3.2-5.0); ALKALINE PHOSPHATASE 93 u/l (38-126); ANION GAP 9 (6-22 (CALC)); BUN 10 mg/dL (7-17); BUN/CREATININE RATIO 13 (12-20 (CALC)); CARBON DIOXIDE 27 mmol/l (22-30); CHLORIDE 105 mmol/l (95-108); CREATININE 0.8 mg/dL (0.5-1.0); GFR FOR AFR.AMER. > 60 ML/MIN (>=60 (CALC)); GFR OTHER RACES > 60 ML/MIN (>=60 (CALC)); POTASSIUM 3.5 mmol/l (3.5-5.1); SGOT/AST 29 u/l (14-36); SODIUM 137 mmol/l (137-146)
[2022-05-11 04:36] LABS: BILIRUBIN, TOTAL 0.2 mg/dL (0.02-1.3)
[2022-05-11 05:05] LABS: URINE BILIRUBIN - DIPSTICK NEGATIVE (NEGATIVE); URINE BLOOD DIPSTICK NEGATIVE (NEGATIVE); URINE COLOR YELLOW; URINE GLUCOSE - DIPSTICK NEGATIVE (NEGATIVE); URINE KETONE NEGATIVE (NEGATIVE); URINE LEUK ESTERASE NEGATIVE (NEGATIVE); URINE PROTEIN - DIPSTICK NEGATIVE (NEG-TRACE); URINE SPECIFIC GRAVITY 1.015
[2022-05-11 05:06] LABS: URINE NITRITE - DIPSTICK NEGATIVE (Negative)
[2022-05-11] MEDS ORDERED: ZOFRAN4 MG/TAB PO (08:35)
[2022-05-11] MEDS ORDERED: TORADOL PO (08:35)
== END 2022-05-11 09:08 | disposition home or self-care (01) ==
LOC: ED 03:32
PROVIDERS: Emergency Medicine
DX: R07.9 Chest pain, unspecified (principal); Z20.822 Contact with and (suspected) exposure to COVID-19

== ENCOUNTER 2022-05-25 09:15 | Emergency (ER) | payer OTHER ==
[~2022-05-25] VITALS: Ht 182.9 cm; Wt 127.0 kg
[2022-05-25 09:31] VITALS: BP 124/78
[2022-05-25 10:00] VITALS: BP 121/81
[2022-05-25 10:30] VITALS: BP 127/89
[2022-05-25 10:39] LABS: BASO% 0.6 % (0-3); EOS% 5.6 % (0-8); HEMATOCRIT 34.8 % (37.0-47.0); HEMOGLOBIN 10.1 g/dl (12.0-16.0); IMMATURE GRANULOCYTES 0.2 % (0.0-5.0); LYMPH% 40.6 % (15-41); MEAN CELL VOLUME 84.9 fL CALC (80.0-100.0); MEAN CORPUSCULAR HGB 24.6 pG CALC (26.0-32.0); MONO% 10.7 % (2-13); NEUT# 2.05 thou/uL (2.00-7.15); NEUT% 42.3 % (42-76); RED BLOOD COUNT 4.1 mill/uL (4.20-5.60)
[2022-05-25 10:52] LABS: ALBUMIN 3.7 g/dL (3.2-5.0); ALKALINE PHOSPHATASE 94 u/l (38-126); ANION GAP 10 (6-22 (CALC)); BUN 7 mg/dL (7-17); BUN/CREATININE RATIO 11 (12-20 (CALC)); CARBON DIOXIDE 23 mmol/l (22-30); CHLORIDE 108 mmol/l (95-108); CREATININE 0.6 mg/dL (0.5-1.0); GFR FOR AFR.AMER. > 60 ML/MIN (>=60 (CALC)); GFR OTHER RACES > 60 ML/MIN (>=60 (CALC)); POTASSIUM 3.5 mmol/l (3.5-5.1); SGOT/AST 23 u/l (14-36); SODIUM 138 mmol/l (137-146)
[2022-05-25 11:00] VITALS: BP 140/96
[2022-05-25 11:30] VITALS: BP 135/89
[2022-05-25 12:29] VITALS: BP 135/89
== END 2022-05-25 12:37 | disposition home or self-care (01) ==
LOC: ED 09:15
PROVIDERS: Family Medicine
DX: R60.0 Localized edema (principal)

== ENCOUNTER 2022-06-15 21:22 | Emergency (ER) | payer OTHER ==
[~2022-06-15] VITALS: Ht 182.9 cm; Wt 107.0 kg
[2022-06-16] MEDS ORDERED: ZPAK PO (00:11)
[2022-06-16] MEDS ORDERED: ROBITUSSIN200 MG/10 PO (00:11)
[2022-06-16 00:34] LABS: URINE BILIRUBIN - DIPSTICK NEGATIVE (NEGATIVE); URINE BLOOD DIPSTICK NEGATIVE (NEGATIVE); URINE COLOR YELLOW; URINE GLUCOSE - DIPSTICK NEGATIVE (NEGATIVE); URINE KETONE TRACE mg/dL (NEGATIVE); URINE LEUK ESTERASE NEGATIVE (NEGATIVE); URINE PH 6.5 (4.5-8.0); URINE PROTEIN - DIPSTICK NEGATIVE (NEG-TRACE); URINE UROBILINOGEN - DIPSTICK 0.2 E.U./dL (0.2)
[2022-06-16 00:42] LABS: URINE NITRITE - DIPSTICK NEGATIVE (Negative)
[2022-06-16 00:55] LABS: BASO% 0.6 % (0-3); EOS% 4.7 % (0-8); HEMOGLOBIN 9.9 g/dl (12.0-16.0); IMMATURE GRANULOCYTES 0.1 % (0.0-5.0); LYMPH% 47.8 % (15-41); MEAN CELL VOLUME 80.9 fL CALC (80.0-100.0); MEAN CORPUSCULAR HGB 24.3 pG CALC (26.0-32.0); NEUT# 2.62 thou/uL (2.00-7.15); NEUT% 38.8 % (42-76); RED BLOOD COUNT 4.08 mill/uL (4.20-5.60); RED CELL DISTRI WIDTH 15.4 % (11.5-15.5)
[2022-06-16 01:03] LABS: ALBUMIN 3.8 g/dL (3.2-5.0); ALKALINE PHOSPHATASE 103 u/l (38-126); ANION GAP 9 (6-22 (CALC)); BUN 10 mg/dL (7-17); BUN/CREATININE RATIO 13 (12-20 (CALC)); CARBON DIOXIDE 26 mmol/l (22-30); CHLORIDE 108 mmol/l (95-108); CREATININE 0.8 mg/dL (0.5-1.0); GFR FOR AFR.AMER. > 60 ML/MIN (>=60 (CALC)); GFR OTHER RACES > 60 ML/MIN (>=60 (CALC)); LIPASE 119 u/l (23-300); POTASSIUM 3.7 mmol/l (3.5-5.1); SGOT/AST 24 u/l (14-36); SODIUM 139 mmol/l (137-146); TOTAL PROTEIN 7.3 g/dL (6.3-8.2)
[2022-06-16] MEDS ORDERED: PERCOCET 5/325M1 TAB PO (03:02)
[2022-06-16 03:08] VITALS: BP 137/93
== END 2022-06-16 03:17 | disposition home or self-care (01) ==
LOC: ED 21:22
PROVIDERS: Emergency Medicine
DX: J06.9 Acute upper respiratory infection, unspecified (principal); N83.201 Unspecified ovarian cyst, right side; Z20.822 Contact with and (suspected) exposure to COVID-19
CPT/HCPCS: Q9967

== ENCOUNTER 2022-06-28 10:21 | Observation (INO) | payer OTHER ==
[2022-06-28] VITALS (19 sets, daily range): BP systolic 105–140; BP diastolic 65–98
[~2022-06-28] VITALS: Ht 182.9 cm; Wt 116.0 kg
[~2022-06-28 10:21] MED LIST changes: +PERCOCET 5/325M1 TAB PO; +ZPAK PO
--- NOTE | 2022-06-28 10:32 | NUR ---
PATIENT TO ROOM 12 VIA WHEELCHAIR
--- NOTE | 2022-06-28 10:35 | NUR ---
PATIENT PLACED ON THE MONITOR AND IV ACCESS OBTAINED IN THE LEF AC, 20G.BLOOD OBTAINED AT THIS TIME.
[2022-06-28] MEDS ORDERED: TRAMADOL HCL50 MG PO (10:40)
--- NOTE | 2022-06-28 10:41 | NUR ---
CALLED A STROKE ALERT
--- NOTE | 2022-06-28 10:45 | NUR ---
PATIENT DECLINED CT AT THIS TIME. PATIENT UNSURE OF STATTUS. PATIENT RETURNED TO THE ED AND URINE SAMPLOE PROVIDED.
[2022-06-28 10:55] LABS: BASO% 0.7 % (0-3); EOS% 5.6 % (0-8); HEMATOCRIT 31.2 % (37.0-47.0); HEMOGLOBIN 9.6 g/dl (12.0-16.0); IMMATURE GRANULOCYTES 0.2 % (0.0-5.0); LYMPH% 41.5 % (15-41); MEAN CELL VOLUME 79.6 fL CALC (80.0-100.0); MEAN CORPUSCULAR HGB 24.5 pG CALC (26.0-32.0); MEAN CORPUSCULAR HGB CONC 30.8 g/dL CAL (32.0-36.0); MONO% 6.3 % (2-13); NEUT# 2.78 thou/uL (2.00-7.15); NEUT% 45.7 % (42-76); RED BLOOD COUNT 3.92 mill/uL (4.20-5.60); RED CELL DISTRI WIDTH 15.7 % (11.5-15.5)
--- NOTE | 2022-06-28 11:00 | NUR ---
TELE NEUROLOGY MONITOR AT THE BEDSIDE. NO CTA ORDERED.
[2022-06-28 11:08] LABS: ALBUMIN 3.9 g/dL (3.2-5.0); ALKALINE PHOSPHATASE 104 u/l (38-126); ANION GAP 12 (6-22 (CALC)); BUN 11 mg/dL (7-17); BUN/CREATININE RATIO 14 (12-20 (CALC)); CARBON DIOXIDE 23 mmol/l (22-30); CHLORIDE 105 mmol/l (95-108); CREATININE 0.8 mg/dL (0.5-1.0); GFR FOR AFR.AMER. > 60 ML/MIN (>=60 (CALC)); GFR OTHER RACES > 60 ML/MIN (>=60 (CALC)); POTASSIUM 4.1 mmol/l (3.5-5.1); SGOT/AST 23 u/l (14-36); SODIUM 136 mmol/l (137-146); TOTAL PROTEIN 7.4 g/dL (6.3-8.2)
[2022-06-28 11:11] LABS: BILIRUBIN, TOTAL 0.1 mg/dL (0.02-1.3)
[2022-06-28 11:27] LABS: URINE BILIRUBIN - DIPSTICK NEGATIVE (NEGATIVE); URINE BLOOD DIPSTICK NEGATIVE (NEGATIVE); URINE COLOR YELLOW; URINE GLUCOSE - DIPSTICK NEGATIVE (NEGATIVE); URINE KETONE NEGATIVE (NEGATIVE); URINE PROTEIN - DIPSTICK NEGATIVE (NEG-TRACE)
[2022-06-28 11:28] LABS: URINE LEUK ESTERASE MODERATE (NEGATIVE); URINE NITRITE - DIPSTICK NEGATIVE (Negative)
[2022-06-28 11:37] LABS: URINE SQUAMOUS EPITHELIAL CELL MANY EPI/hpf (0-FEW)
--- NOTE | 2022-06-28 12:30 | NUR ---
PATIENT MEDICATED . IVF INITIATED ALSO. PATIENT IS NOW RESTING. NO DISTRESS.
--- NOTE | 2022-06-28 13:16 | NUR ---
REVIEWED WITH PATIENT WHAT SHE TAKES AT HOME. PATIENT STATES ONLY MEDICATION IS TRAMADOL AND SHE CAN'T RECALL TYHE LAST TIME SHE TOOK IT. MEDICATION RECONCILIATION COMPLETED.
--- NOTE | 2022-06-28 15:00 | NUR ---
ATTEMPTED TO CALL REPORT TO RECIEVING NURSE. NURSE UNAVAILABLE. SHE WILL CALL BACK
--- NOTE | 2022-06-28 15:11 | NUR ---
REPORT RECEIVED FROM ED GENA ACE. PT BEING ADMITTED FOR VERTIGO.
--- NOTE | 2022-06-28 15:16 | NUR ---
VERBAL REPORT GIVEN TO MICHAEL CLEMENT NURSE ON MED-SURG/TELEMETRY. PATIENT TAKEN UPSTAIRS.
--- NOTE | 2022-06-28 19:30 | NUR ---
BESIDE RPORT RECIEVED, PATIENT IN BATHROOM, WHITEBOARD UPDATED, PATIENT HAS SOME NAUSEA, GIVEN ALCOHL PREP PADS, NO OTHER NEEDS AT THIS TIME, PATIENT SAFETY PRECAUTIONS IN PLACE.
--- NOTE | 2022-06-28 23:32 | NUR ---
PATIENT IN BED, TELEMETRY CALLED STATING PATIENT WAS TACHY, PATIENT HAD JUST WOKE UP FROM A BAD DREAM, PATIENT HAD SOME UNFOURTUNATE EVENTS OCCUR RECENTLY WHICH HAS CAUSED STRESS AND ANXIETY FOR HER. PATIENT AMBULATED TO THE BATHROOM HEART RATE WAS STILL ELEVATED, (127 BPM) PATIENT NOW DOWN TO 102 BPM.
--- NOTE | 2022-06-28 23:50 | NUR ---
PATIENT COMPLAINING OF FEELING ANXIOUS, WANTING TO HER MOTHERS HOUSE. EDUCATED PATIENT ON ANXIETY, CALLED GRAVEL WEIGHER EXPLAINED PATIENT WANTED TO GO AMA.
--- NOTE | 2022-06-29 | NUR ---
PATIENT EDUCATED FURTHER ON AMA, REINFORCED IF SHE NEEDED TO COME BACK TO GO THE ER, EDUCATED ON ANXIETY AND CALMING TECHNIQUES. PATIENT SIGNED AMA. IV REMOVED AND TELEMTRY
--- NOTE | 2022-06-29 00:24 | NUR ---
PATIENT TAKEN TO LOBBY IN STABLE CONDITION VIA WHEELCHAIR ESCORTED BY STAFF TO FAMILY MEMBER WAITING TO PICK PATIENT UP.
== END 2022-06-29 00:20 | disposition left against medical advice (07) ==
LOC: ED 10:21 → ED-I 12:40 → ED 13:04 → MS2 13:05
PROVIDERS: Family Medicine; ADMIT Internal Medicine; ATTEND Internal Medicine
DX: R42 Dizziness and giddiness (principal); R55 Syncope and collapse; R11.0 Nausea; R20.0 Anesthesia of skin; R20.8 Other disturbances of skin sensation; R82.71 Bacteriuria
CPT/HCPCS: G0378; Q9967

== ENCOUNTER 2022-07-15 21:44 | Emergency (ER) | payer OTHER | END 2022-07-15 23:45 | disposition left against medical advice (07) | DRG 951 | LOC: ED 21:44 → LWOBS 21:57 | DX: Z53.21 Procedure and treatment not carried out due to patient leaving prior to being seen by health care provider (principal) ==

== ENCOUNTER 2022-08-06 23:17 | Emergency (ER) | payer OTHER ==
[~2022-08-06] VITALS: Ht 182.9 cm; Wt 84.0 kg
[2022-08-06] MEDS ORDERED: TRAMADOL HCL50 MG PO (23:46)
[2022-08-07 00:23] VITALS: BP 133/84
== END 2022-08-07 01:00 | disposition home or self-care (01) ==
LOC: ED 23:17
DX: N83.201 Unspecified ovarian cyst, right side (principal); N94.6 Dysmenorrhea, unspecified; I49.3 Ventricular premature depolarization

== ENCOUNTER 2022-10-05 20:05 | Emergency (ER) | payer OTHER ==
[~2022-10-05] VITALS: Ht 182.9 cm; Wt 109.0 kg
[2022-10-05 22:16] VITALS: BP 119/72
[2022-10-05 22:31] VITALS: BP 136/72
[2022-10-06 00:14] LABS: URINE BILIRUBIN - DIPSTICK Negative (NEGATIVE); URINE BLOOD DIPSTICK Moderate (NEGATIVE); URINE COLOR Yellow; URINE GLUCOSE - DIPSTICK Negative (NEGATIVE); URINE KETONE Trace mg/dL (NEGATIVE); URINE LEUK ESTERASE Negative (NEGATIVE); URINE NITRITE - DIPSTICK Negative (Negative); URINE PH 6.5 (4.5-8.0); URINE PROTEIN - DIPSTICK Negative (NEG-TRACE); URINE SPECIFIC GRAVITY 1.025
[2022-10-06 00:19] LABS: URINE BACTERIA FEW hpf; URINE SQUAMOUS EPITHELIAL CELL FEW EPI/hpf (0-FEW); URINE WBC 0-2 WBC/hpf (0-5)
[2022-10-06 01:48] VITALS: BP 136/72
== END 2022-10-06 02:20 | disposition home or self-care (01) ==
LOC: ED 20:05
PROVIDERS: Family Medicine
DX: G43.909 Migraine, unspecified, not intractable, without status migrainosus (principal)

== ENCOUNTER 2022-10-11 06:58 | Emergency (ER) | payer OTHER ==
[~2022-10-11] VITALS: Ht 180.3 cm; Wt 107.0 kg
[2022-10-11 07:11] VITALS: BP 136/80
[2022-10-11 07:31] VITALS: BP 116/86
[2022-10-11] MEDS ORDERED: NAPROXEN500 MG PO (07:52)
[2022-10-11] MEDS ORDERED: HYDROCO/APAP1 TA9 PO (07:52)
[2022-10-11] MEDS ORDERED: OFLOXACIN0.3 % OD (07:52)
[2022-10-11 08:01] VITALS: BP 138/103
[2022-10-11 08:12] VITALS: BP 138/103
== END 2022-10-11 08:56 | disposition home or self-care (01) ==
LOC: ED 06:58
DX: S05.01XA Injury of conjunctiva and corneal abrasion without foreign body, right eye, initial encounter (principal); X58.XXXA Exposure to other specified factors, initial encounter

== ENCOUNTER 2022-10-18 18:19 | Emergency (ER) | payer OTHER ==
[~2022-10-18] VITALS: Ht 180.3 cm; Wt 118.0 kg
[~2022-10-18 18:19] MED LIST changes: +HYDROCO/APAP1 TA9 PO; +OFLOXACIN0.3 % OD
[2022-10-18 18:53] VITALS: BP 126/74
[2022-10-18 19:00] VITALS: BP 120/79
[2022-10-18 19:30] VITALS: BP 121/79
[2022-10-18] MEDS ORDERED: HYDROCO/APAP1 TA9 PO (19:53)
[2022-10-18] MEDS ORDERED: ERYTHROMYCIN O3.5 GM OD (19:53)
[2022-10-18 20:00] VITALS: BP 119/68
[2022-10-18 20:10] VITALS: BP 119/68
== END 2022-10-18 20:10 | disposition home or self-care (01) ==
LOC: ED 18:19
DX: H10.11 Acute atopic conjunctivitis, right eye (principal)

== ENCOUNTER 2023-04-03 21:07 | Emergency (ER) | payer OTHER ==
[~2023-04-03] VITALS: Ht 180.3 cm; Wt 106.0 kg
[~2023-04-03 21:07] MED LIST changes: +DIFLUNISAL500 MG PO; +ERYTHROMYCIN O3.5 GM OD; +PERCOGESI1 PO
[2023-04-04 00:07] LABS: BASO% 0.4 % (0-3); EOS% 4.1 % (0-8); HEMATOCRIT 34.8 % (37.0-47.0); HEMOGLOBIN 10.4 g/dl (12.0-16.0); IMMATURE GRANULOCYTES 0.1 % (0.0-5.0); LYMPH% 40.4 % (15-41); MEAN CELL VOLUME 81.3 fL CALC (80.0-100.0); MEAN CORPUSCULAR HGB 24.3 pG CALC (26.0-32.0); MEAN CORPUSCULAR HGB CONC 29.9 g/dL CAL (32.0-36.0); MONO% 10.4 % (2-13); NEUT# 3.27 thou/uL (2.00-7.15); NEUT% 44.6 % (42-76); RED BLOOD COUNT 4.28 mill/uL (4.20-5.60); RED CELL DISTRI WIDTH 16.1 % (11.5-15.5)
[2023-04-04 00:14] LABS: ALBUMIN 3.9 g/dL (3.2-5.0); ALKALINE PHOSPHATASE 86 u/l (38-126); ANION GAP 7 (6-22 (CALC)); BILIRUBIN, TOTAL 0.2 mg/dL (0.02-1.3); BUN 10 mg/dL (7-17); BUN/CREATININE RATIO 12 (12-20 (CALC)); CARBON DIOXIDE 29 mmol/l (22-30); CHLORIDE 108 mmol/l (95-108); CREATININE 0.8 mg/dL (0.5-1.0); GFR FOR AFR.AMER. > 60 ML/MIN (>=60 (CALC)); GFR OTHER RACES > 60 ML/MIN (>=60 (CALC)); LIPASE 94 u/l (23-300); POTASSIUM 3.6 mmol/l (3.5-5.1); SGOT/AST 26 u/l (14-36); SODIUM 140 mmol/l (137-146); TOTAL PROTEIN 7.4 g/dL (6.3-8.2)
[2023-04-04] MEDS ORDERED: ONDANSETRON HCl 4 MG/2 ML SDV IV ONE (00:30)
[2023-04-04] MEDS ORDERED: KETOROLAC TROMETHAMINE 30 MG/ML SDV IV ONE (00:30)
[2023-04-04 00:59] LABS: URINE BLOOD DIPSTICK Trace-lysed (NEGATIVE); URINE GLUCOSE - DIPSTICK Negative (NEGATIVE); URINE KETONE 15 mg/dL (NEGATIVE); URINE LEUK ESTERASE Negative (NEGATIVE); URINE NITRITE - DIPSTICK Negative (Negative); URINE PROTEIN - DIPSTICK 30 mg/dL (NEG-TRACE); URINE SPECIFIC GRAVITY >=1.030
[2023-04-04 01:00] LABS: URINE COLOR Yellow
[2023-04-04 01:03] LABS: URINE BACTERIA MODERATE hpf; URINE MUCUS FEW hpf (NONE-FEW); URINE SQUAMOUS EPITHELIAL CELL MANY EPI/hpf (0-FEW)
[2023-04-04] MEDS ORDERED: NAPROXEN500 MG PO (02:16)
[2023-04-04 03:00] VITALS: BP 123/76
== END 2023-04-04 03:00 | disposition home or self-care (01) ==
LOC: ED 21:07
PROVIDERS: Emergency Medicine
DX: N83.201 Unspecified ovarian cyst, right side (principal)

== ENCOUNTER 2023-08-20 22:38 | Emergency (ER) | payer OTHER ==
[~2023-08-20] VITALS: Ht 180.3 cm; Wt 111.0 kg
[~2023-08-20 22:38] MED LIST changes: +ANTI-DIARRHE2 M1 PO; +PROMETHAZINE HY25 M1 PO
[2023-08-20 23:53] LABS: BASO% 0.3 % (0-3); EOS% 0.8 % (0-8); HEMATOCRIT 33.4 % (37.0-47.0); HEMOGLOBIN 10.3 g/dl (12.0-16.0); IMMATURE GRANULOCYTES 0.1 % (0.0-5.0); LYMPH% 26.2 % (15-41); MEAN CELL VOLUME 81.3 fL CALC (80.0-100.0); MEAN CORPUSCULAR HGB 25.1 pG CALC (26.0-32.0); MEAN CORPUSCULAR HGB CONC 30.8 g/dL CAL (32.0-36.0); MONO% 6.9 % (2-13); NEUT# 5.17 thou/uL (2.00-7.15); NEUT% 65.7 % (42-76); RED BLOOD COUNT 4.11 mill/uL (4.20-5.60); RED CELL DISTRI WIDTH 15.3 % (11.5-15.5)
[2023-08-21 00:05] LABS: URINE BILIRUBIN - DIPSTICK Negative (NEGATIVE); URINE BLOOD DIPSTICK Negative (NEGATIVE); URINE COLOR Yellow; URINE GLUCOSE - DIPSTICK Negative (NEGATIVE); URINE KETONE Negative (NEGATIVE); URINE LEUK ESTERASE Small (NEGATIVE); URINE NITRITE - DIPSTICK Negative (Negative); URINE PROTEIN - DIPSTICK Negative (NEG-TRACE)
[2023-08-21 00:12] LABS: URINE BACTERIA FEW hpf; URINE SQUAMOUS EPITHELIAL CELL FEW EPI/hpf (0-FEW); URINE YEAST FEW hpf
[2023-08-21 00:22] LABS: BILIRUBIN, TOTAL 0.4 mg/dL (0.02-1.3); CREATININE 0.7 mg/dL (0.5-1.0); POTASSIUM 3.7 mmol/l (3.5-5.1)
[2023-08-21] MEDS ORDERED: traMADol HCL 50 MG/TAB PO ONE (00:35)
[2023-08-21] MEDS ORDERED: KETOROLAC TROMETHAMINE 30 MG/ML SDV IM ONE (00:35)
[2023-08-21] MEDS ORDERED: ACETAMINOPHEN 500 MG TAB PO ONE (00:35)
[2023-08-21] MEDS ORDERED: Peg 3350-POTASSIUM CHLORIDE-So 4,000 ML BTL PO ONE (01:25)
[2023-08-21 01:49] VITALS: BP 125/93
== END 2023-08-21 01:50 | disposition home or self-care (01) ==
LOC: ED 22:38
PROVIDERS: Family Medicine
DX: K59.00 Constipation, unspecified (principal)

== ENCOUNTER 2023-09-29 17:08 | Emergency (ER) | payer OTHER | END 2023-09-29 18:00 | disposition left against medical advice (07) | DRG 951 | LOC: ED 17:08 → LWOBS 17:59 | DX: Z53.21 Procedure and treatment not carried out due to patient leaving prior to being seen by health care provider (principal) ==

== ENCOUNTER 2023-11-03 07:41 | Emergency (ER) | payer BC, OTHER ==
[2023-11-03] VITALS (9 sets, daily range): BP systolic 125–155; BP diastolic 80–100
[~2023-11-03] VITALS: Ht 180.3 cm; Wt 99.7 kg
[2023-11-03] MEDS ORDERED: PHENAZOPYRIDINE HCL 100 MG/TAB PO ONE (08:10)
[2023-11-03] MEDS ORDERED: SULFAMETHOXAZOLE W/TRIMETHOPRI 1 COMBO TAB PO ONE (08:10)
[2023-11-03] MEDS ORDERED: TRAMADOL HYDROC50 M1 PO (08:13)
[2023-11-03] MEDS ORDERED: PYRIDIUM200 MG PO (08:13)
[2023-11-03] MEDS ORDERED: BACTRIM DS1 TAB PO (08:13)
[2023-11-03] MEDS ORDERED: ONDANSETRON 4 MG/TAB ODT PO ONE (09:20)
[2023-11-03] MEDS ORDERED: traMADol HCL 50 MG/TAB PO ONE (09:20)
[2023-11-03 09:24] LABS: URINE BILIRUBIN - DIPSTICK Negative (NEGATIVE); URINE BLOOD DIPSTICK Moderate (NEGATIVE); URINE GLUCOSE - DIPSTICK Negative (NEGATIVE); URINE KETONE Negative (NEGATIVE); URINE PH 6.5 (4.5-8.0); URINE PROTEIN - DIPSTICK Negative (NEG-TRACE)
[2023-11-03 09:25] LABS: URINE COLOR Dark yellow; URINE LEUK ESTERASE Small (NEGATIVE); URINE NITRITE - DIPSTICK Positive (Negative)
[2023-11-03 09:30] LABS: URINE RBC 0-2 RBC/hpf (0-5); URINE SQUAMOUS EPITHELIAL CELL MODERATE EPI/hpf (0-FEW)
[2023-11-03 09:31] LABS: URINE BACTERIA MODERATE hpf; URINE TRANSITIONAL EPI. CELLS FEW hpf
[2023-11-03] MEDS ORDERED: PROVERA10 MG PO (10:30)
== END 2023-11-03 10:42 | disposition home or self-care (01) | DRG 690 ==
LOC: ED 07:41
PROVIDERS: Emergency Medicine
DX: N39.0 Urinary tract infection, site not specified (principal); N83.201 Unspecified ovarian cyst, right side; N93.8 Other specified abnormal uterine and vaginal bleeding

== ENCOUNTER 2024-01-15 19:06 | Emergency (ER) | payer BC, OTHER ==
[~2024-01-15] VITALS: Ht 180.3 cm; Wt 104.3 kg
[2024-01-15] VITALS (9 sets, daily range): BP systolic 101–140; BP diastolic 57–86
[~2024-01-15 19:06] MED LIST changes: +PROVERA10 MG PO; +PYRIDIUM200 MG PO
[2024-01-15] MEDS ORDERED: MORPHINE SULFATE 4 MG/ML VIAL IV ONE (19:30)
[2024-01-15] MEDS ORDERED: ONDANSETRON HCl 4 MG/2 ML SDV IV ONE (19:30)
[2024-01-15 19:49] LABS: BASO% 0.7 % (0-3); EOS% 5.2 % (0-8); HEMATOCRIT 30.1 % (37.0-47.0); HEMOGLOBIN 9.1 g/dl (12.0-16.0); IMMATURE GRANULOCYTES 0.2 % (0.0-5.0); LYMPH% 38.5 % (15-41); MEAN CELL VOLUME 82.7 fL CALC (80.0-100.0); MEAN CORPUSCULAR HGB CONC 30.2 g/dL CAL (32.0-36.0); MONO% 9.8 % (2-13); NEUT# 2.78 thou/uL (2.00-7.15); NEUT% 45.6 % (42-76); RED BLOOD COUNT 3.64 mill/uL (4.20-5.60)
[2024-01-15 19:59] LABS: ALBUMIN 3.8 g/dL (3.2-5.0); BILIRUBIN, TOTAL 0.3 mg/dL (0.02-1.3); CREATININE 0.6 mg/dL (0.5-1.0); POTASSIUM 3.5 mmol/l (3.5-5.1)
[2024-01-15] MEDS ORDERED: DiphenhydrAMINE HCL 50 MG/ML SDV IV ONE (20:40)
[2024-01-15] MEDS ORDERED: METOCLOPRAMIDE HCL 10 MG/2 ML SDV IV ONE (20:40)
[2024-01-15] MEDS ORDERED: CELEBREX200 MG PO (23:18)
[2024-01-15] MEDS ORDERED: TRAMADOL HYDROC50 M1 PO (23:25)
[2024-01-16] MEDS ORDERED: traMADol HCL 50 MG/TAB PO ONE (00:30)
== END 2024-01-16 00:45 | disposition home or self-care (01) | DRG 761 ==
LOC: ED 19:06
PROVIDERS: Emergency Medicine
DX: N83.201 Unspecified ovarian cyst, right side (principal); D25.9 Leiomyoma of uterus, unspecified
CPT/HCPCS: J1200; J2405; J2765

== ENCOUNTER 2024-02-12 01:29 | Emergency (ER) | payer BC, OTHER ==
[~2024-02-12] VITALS: Ht 180.3 cm; Wt 104.0 kg
[~2024-02-12 01:29] MED LIST changes: +CELEBREX200 MG PO
[2024-02-12] MEDS ORDERED: SODIUM CHLORIDE 0.9% 1,000 ML IV STA (01:37)
[2024-02-12] MEDS ORDERED: PROMETHAZINE HCL 25 MG/ML AMP IV ONE (01:40)
[2024-02-12] MEDS ORDERED: KETOROLAC TROMETHAMINE 30 MG/ML SDV IV ONE (01:40)
[2024-02-12] MEDS ORDERED: DiphenhydrAMINE HCL 50 MG/ML SDV IV ONE (01:40)
[2024-02-12 01:51] LABS: BASO% 0.4 % (0-3); EOS% 2.5 % (0-8); HEMATOCRIT 31.8 % (37.0-47.0); IMMATURE GRANULOCYTES 0.4 % (0.0-5.0); LYMPH% 23.3 % (15-41); MEAN CELL VOLUME 78.9 fL CALC (80.0-100.0); MEAN CORPUSCULAR HGB 24.8 pG CALC (26.0-32.0); MEAN CORPUSCULAR HGB CONC 31.4 g/dL CAL (32.0-36.0); MONO% 8.6 % (2-13); NEUT# 6.47 thou/uL (2.00-7.15); NEUT% 64.8 % (42-76); RED BLOOD COUNT 4.03 mill/uL (4.20-5.60); RED CELL DISTRI WIDTH 16.3 % (11.5-15.5)
[2024-02-12 02:01] LABS: ALBUMIN 4.1 g/dL (3.2-5.0); ALKALINE PHOSPHATASE 93 u/l (38-126); ANION GAP 14 (6-22 (CALC)); BILIRUBIN, TOTAL 0.4 mg/dL (0.02-1.3); BUN 9 mg/dL (7-17); BUN/CREATININE RATIO 13 (12-20 (CALC)); CARBON DIOXIDE 20 mmol/l (22-30); CHLORIDE 105 mmol/l (95-108); CREATININE 0.7 mg/dL (0.5-1.0); ESTIMATED GFR 116 ML/MIN (>=90 (CALC)); POTASSIUM 3.8 mmol/l (3.5-5.1); SGOT/AST 33 u/l (14-36); SODIUM 135 mmol/l (137-146); TOTAL PROTEIN 7.8 g/dL (6.3-8.2)
[2024-02-12 02:48] LABS: URINE BILIRUBIN - DIPSTICK Negative (NEGATIVE); URINE BLOOD DIPSTICK Large (NEGATIVE); URINE GLUCOSE - DIPSTICK Negative (NEGATIVE); URINE KETONE Negative (NEGATIVE); URINE NITRITE - DIPSTICK Negative (Negative); URINE PH >=9.0 (4.5-8.0); URINE PROTEIN - DIPSTICK 100 mg/dL (NEG-TRACE)
[2024-02-12 02:51] LABS: URINE COLOR Red
[2024-02-12 02:59] LABS: URINE LEUK ESTERASE Negative (NEGATIVE)
[2024-02-12 03:01] LABS: URINE BACTERIA FEW hpf; URINE EPITHELIAL CELLS FEW EPI/hpf (0-FEW); URINE RBC >100 RBC/hpf (0-5)
[2024-02-12] MEDS ORDERED: ONDANSETRON 4 MG/TAB ODT PO ONE (04:55)
[2024-02-12 05:00] VITALS: BP 128/86
== END 2024-02-12 05:00 | disposition home or self-care (01) | DRG 761 ==
LOC: ED 01:29
PROVIDERS: Family Medicine
DX: N94.6 Dysmenorrhea, unspecified (principal); R10.33 Periumbilical pain; N83.201 Unspecified ovarian cyst, right side
CPT/HCPCS: J1200; J2550; Q9967

== ENCOUNTER 2024-05-03 07:20 | Emergency (ER) | payer BC, OTHER ==
[2024-05-03] VITALS (8 sets, daily range): BP systolic 122–142; BP diastolic 68–96
[~2024-05-03] VITALS: Ht 180.3 cm; Wt 102.0 kg
[2024-05-03] MEDS ORDERED: DiphenhydrAMINE HCL 50 MG/ML SDV IV ONE (07:55)
[2024-05-03] MEDS ORDERED: METOCLOPRAMIDE HCL 10 MG/2 ML SDV IV ONE (07:55)
[2024-05-03] MEDS ORDERED: SODIUM CHLORIDE 0.9% 1,000 ML IV ONE (07:55)
[2024-05-03] MEDS ORDERED: KETOROLAC TROMETHAMINE 30 MG/ML SDV IV ONE (07:55)
[2024-05-03 08:06] LABS: BASO% 0.5 % (0-3); EOS% 4.8 % (0-8); HEMATOCRIT 33.5 % (37.0-47.0); HEMOGLOBIN 10.3 g/dl (12.0-16.0); IMMATURE GRANULOCYTES 0.2 % (0.0-5.0); LYMPH% 28.2 % (15-41); MEAN CELL VOLUME 80.5 fL CALC (80.0-100.0); MEAN CORPUSCULAR HGB 24.8 pG CALC (26.0-32.0); MEAN CORPUSCULAR HGB CONC 30.7 g/dL CAL (32.0-36.0); NEUT# 3.46 thou/uL (2.00-7.15); NEUT% 55.3 % (42-76); RED BLOOD COUNT 4.16 mill/uL (4.20-5.60); RED CELL DISTRI WIDTH 16.6 % (11.5-15.5)
[2024-05-03] MEDS ORDERED: MIDAZOLAM HCL 2 MG/2 ML VIAL IV ONE (08:20)
[2024-05-03 08:21] LABS: ALBUMIN 4.3 g/dL (3.2-5.0); CREATININE 0.6 mg/dL (0.5-1.0); POTASSIUM 4.2 mmol/l (3.5-5.1); TOTAL PROTEIN 8.1 g/dL (6.3-8.2)
[2024-05-03 08:32] LABS: BILIRUBIN, TOTAL 0.8 mg/dL (0.02-1.3)
[2024-05-03 10:00] LABS: URINE BLOOD DIPSTICK Large (NEGATIVE); URINE GLUCOSE - DIPSTICK Negative (NEGATIVE); URINE KETONE Negative (NEGATIVE); URINE LEUK ESTERASE Negative (NEGATIVE); URINE NITRITE - DIPSTICK Negative (Negative); URINE PROTEIN - DIPSTICK 100 mg/dL (NEG-TRACE); URINE SPECIFIC GRAVITY 1.025
[2024-05-03 10:06] LABS: URINE COLOR Red
[2024-05-03 10:13] LABS: URINE RBC >100 RBC/hpf (0-5)
[2024-05-03 10:18] LABS: URINE SQUAMOUS EPITHELIAL CELL FEW EPI/hpf (0-FEW)
== END 2024-05-03 10:36 | disposition home or self-care (01) | DRG 103 ==
LOC: ED 07:20
PROVIDERS: Family Medicine
DX: G43.009 Migraine without aura, not intractable, without status migrainosus (principal); N94.6 Dysmenorrhea, unspecified
CPT/HCPCS: J1100; J1200; J2765